=== PATIENT | female | born 1965 | race African-American/Black ===

== ENCOUNTER 2024-06-11 10:50 | Emergency (ER) | payer BC, OTHER ==
[~2024-06-11] VITALS: Ht 162.6 cm; Wt 63.0 kg
--- NOTE | 2024-06-11 11:18 | ED.PDOC ---
HPI (NEURO) HPI Comments 58 year old female brought in by EMS presents to the ED with a chief complaint of seizure onset today. Per EMS, patient was at [employer] when she experienced a witnessed seizure, lasted about 30 seconds. In route to ED, patient experienced a second seizure, tonic-clonic, lasted about 1 minute. Per EMS patient is ANO x1, postictal state. Patient states she is on Keppra for her seizure disorder. 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[employer] History Family History Family History: Unknown Social History Smoker: Non-Smoker Alcohol: Denies ETOH Use Drugs: Denies Drug Use Lives In: Home Constitutional: denies: chills, diaphoresis, fatigue, fever, malaise, sweats, weakness, others EENTM: denies: blurred vision, double vision, ear bleeding, ear discharge, ear drainage, ear pain, ear ringing, eye pain, eye redness, hearing loss, mouth pain, mouth swelling, nasal discharge, nose bleeding, nose congestion, nose pain, photophobia, tearing, throat pain, throat swelling, voice changes, others Respiratory: denies: cough, hemoptysis, orthopnea, SOB at rest, shortness of breath, SOB with excertion, stridor, wheezing, others Cardiovascular: denies: chest pain, dizzy spells, diaphoresis, Dyspnea on exertion, edema, irregular heart beat, left arm pain, lightheadedness, palpitations, PND, syncope, others Gastrointestinal: denies: abdomen distended, abdominal pain, blood streaked bowels, constipated, diarrhea, dysphagia, difficulty swallowing, hematemesis, melena, nausea, poor appetite, poor fluid intake, rectal bleeding, rectal pain, vomiting, others Genitourinary: denies: abnormal vagina bleeding, burning, dyspareunia, dysuria, flank pain, frequency, hematuria, incontinence, pain, , vagina discharge, urgency, others Neurological: reports: seizure; denies: dizziness, fainting, headache, left sided numbness, left sided weakness, numbness, paresthesia, pre-existing deficit, right sided numbness, right sided weakness, speech problems, tingling, tremors, weakness, others Musculoskeletal: denies: back pain, gout, joint pain, joint swelling, muscle pain, muscle stiffness, neck pain, others Integumetry: denies: bruises, change in color, change in hair/nails, dryness, laceration, lesions, lumps, rash, wounds, others Allergic/Immunocompromised: denies: Difficulty Healing, Frequent Infections, Hives, Itching, others Hematologic/Lymphatic: denies: anemia, blood clots, easy bleeding, easy bruising, swollen glands, others Endocrine: denies: excessive hunger, excessive sweating, excessive thirst, excessive urination, flushing, intolerance to cold, intolerance to heat, unexplained weight gain, unexplained weight loss, others Psychiatric: denies: anxiety, bipolar disorder, depression, hopeless, panic disorder, schizophrenia, sleepless, suicidal, others All Other Systems: Reviewed and Negative Physical Exam General Appearance: Moderate Distress HEENT: Normal ENT Inspection, Pharynx Normal, TMs Normal Neck: Full Range of Motion, Non-Tender, Normal, Normal Inspection Respiratory: Chest Non-Tender, Lungs Clear, No Accessory Muscle Use, No Respiratory Distress, Normal Breath Sounds Cardiovascular: No Edema, No JVD, No Murmur, No Gallop, Normal Peripheral Pulses, Regular Rate/Rhythm Breast Exam: Deferred Gastrointestinal: No Organomegaly, Non Tender, No Pulsatile Mass, Normal Bowel Sounds, Soft Genitalia: Deferred Pelvic: Deferred Rectal: Deferred Extremities: No pedal edema Musculoskeletal : Apperance: Normal Neurologic: Disoriented, No Motor Deficits, No Sensory Deficits Cerebellar Function: NOT DONE Reflexes: NOT DONE Skin: Normal Color Peripheral Pulses: 3+ Radial (R), 3+ Radial (L) Lymphatic: No Adenopathy Was a procedure done? Was a procedure done?: No Differential Diagnosis (SZ) Seizure: Psychogenic Seizure, Closed Head Injury, CVA/TIA X-Ray, Labs, Meds, VS Vital Signs Date Time Temp Pulse Resp B/P (MAP) Pulse Ox O2 Delivery O2 Flow Rate FiO2 06/11/24 11:12 97.9 72 20 119/81 (94) 100 Lab Test 06/11/24 12:55 Range/Units White Blood Count 7.4 4.4-10.8 10^3/uL Red Blood Count 4.70 4.0-5.20 10^6/uL Hemoglobin 14.6 12.2-16.2 g/dL Hematocrit 43.6 36.0-46.0 % Mean Corpuscular Volume 92.8 80.0-100.0 fL Mean Corpuscular Hemoglobin 31.1 28.0-32.0 pg Mean Corpuscular Hemoglobin Concent 33.5 32.0-36.0 g/dL Red Cell Distribution Width 13.2 11.8-14.3 % Platelet Count 267 140-450 10^3/uL Mean Platelet Volume 8.2 6.9-10.8 fL Neutrophils (%) (Auto) 64.9 37.0-80.0 % Lymphocytes (%) (Auto) 27.0 10.0-50.0 % Monocytes (%) (Auto) 7.2 0.0-12.0 % Eosinophils (%) (Auto) 0.2 0.0-7.0 % Basophils (%) (Auto) 0.7 0.0-2.0 % Neutrophils # (Auto) 4.8 1.6-8.6 10 ^3/uL Lymphocytes # (Auto) 2.0 0.4-5.4 10 ^3/uL Monocytes # (Auto) 0.5 0-1.3 10 ^3/uL Eosinophils # (Auto) 0 0-0.8 10 ^3/uL Basophils # (Auto) 0.1 0-0.2 10 ^3/uL Nucleated Red Blood Cells 0.1 % Sodium Level 143 136-145 mmol/L Potassium Level 3.9 3.5-5.1 mmol/L Chloride Level 111 H 98-107 mmol/L Carbon Dioxide Level 23 20-31 mmol/L Anion Gap 9 5-15 Blood Urea Nitrogen 12 9-23 mg/dL Creatinine 0.73 0.550-1.02 mg/dL Glomerular Filtration Rate Calc 95 >90 mL/min BUN/Creatinine Ratio 16.4 10.0-20.0 Serum Glucose 81 74-106 mg/dL Calcium Level 10.9 H 8.7-10.4 mg/dL Patient postictal. History of seizure. Had a seizure while at [employer]. Vitals stable. Moving her extremities pain Unable to get a good history from the patient. She did state that she is taking her medication. WBC within normal limits. Hemoglobin within normal limits. No sign of any trauma. CT of the head was deferred. Possibly will need MRI. Explained to the patient. Continue cardiac monitoring. Time of 1ST Reevaluation: 11:30 Reevaluation 1ST: Unchanged Patient Education/Counseling: Diagnosis, Treatment, Prognosis Family Education/Counseling: No Family Present Additional Information I reviewed the following notes from patient's past medical encounters: The following tests were ordered, and results were reviewed by me: CBC, UA, BMP Additional Information was gathered from interviewing the following independent historians: EMS I discussed treatment and results with medical personnel and patient Departure 1 Departure Time of Disposition: 15:06 Impression: Primary Impression: Metabolic encephalopathy Additional Impression: Seizure Disposition: ADMITTED INPATIENT Admit to: Med Surg Condition: Guarded Critical Care Note Critical Care Time?: Yes (90 min-critical care time only) Stability Stability form required: No Heart Score Heart Score: Heart Score Response (Comments) Value History Slightly Suspicious 0 EKG Normal 0 Age 45-64 1 Risk Factors 1 or 2 risk factors 1 Troponin Normal limit 0 Total 2 I personally scribed for CHANNING HILTON MD ([email or web address]) on 06/11/24 at 11:18. Electronically submitted by Lucero Amaro ([email or web address]). I personally scribed for CHANNING HILTON MD ([email or web address]) on 06/11/24 at 15:01. Electronically submitted by Lucero Amaro ([email or web address]). CHANNING HILTON MD Jun 11, 2024 11:18
[2024-06-11] MEDS: SODIUM CHLORIDE 0.9% 1,000 ML IV ONE (12:31)
[2024-06-11 13:08] LABS: Basophils # (auto) 0.1 10 ^3/uL (0-0.2); Basophils % (auto) 0.7 % (0.0-2.0); Eosinophils # (auto) 0 10 ^3/uL (0-0.8); Eosinophils % (auto) 0.2 % (0.0-7.0); Hematocrit 43.6 % (36.0-46.0); Hemoglobin 14.6 g/dL (12.2-16.2); Mean Corpuscular Hemoglobin 31.1 pg (28.0-32.0); Mean Corpuscular Hgb Conc. 33.5 g/dL (32.0-36.0); Mean Corpuscular Volume 92.8 fL (80.0-100.0); Monocytes # (auto) 0.5 10 ^3/uL (0-1.3); Monocytes % (auto) 7.2 % (0.0-12.0); Neutrophils # (auto) 4.8 10 ^3/uL (1.6-8.6); Neutrophils % (auto) 64.9 % (37.0-80.0); Nucleated Red Blood Cells % 0.1 %; Platelet Count (auto) 267 10^3/uL (140-450); Red Cell Distribution Width 13.2 % (11.8-14.3); White Blood Cell 7.4 10^3/uL (4.4-10.8)
[2024-06-11 13:18] LABS: Potassium 3.9 mmol/L (3.5-5.1); Sodium 143 mmol/L (136-145)
[2024-06-11 13:19] LABS: Anion Gap 9 (5-15); Calcium 10.9 mg/dL (8.7-10.4); Carbon Dioxide 23 mmol/L (20-31); Chloride 111 mmol/L (98-107)
[2024-06-11 13:24] LABS: BUN/Creatinine Ratio 16.4 (10.0-20.0); Blood Urea Nitrogen 12 mg/dL (9-23); Glucose 81 mg/dL (74-106)
--- NOTE | 2024-06-11 18:35 | DVH ---
Exam: CT HEAD WITHOUT CONTRAST History: seizure Technique: [address] images through the posterior fossa and the supratentorial compart ment were acquired without contrast and imaged using soft tissue and bone algorithms. RADIATION DOSE: DLP 1504.18 mGy.cm; CTDI vol 51.3 mGy. Comparison: None Findings: There is no evidence of an intracranial hemorrhage, acute large vessel infarct, mass effect, or midli ne shift. Left ICA aneurysm clip. Right posterior parietal shunt appears to terminate in the left frontoparieta l lobe and not within the lateral ventricle. The calvarium, orbits, paranasal sinuses, sella, middle ears, and mastoids are unremarkable. The superficial soft tissues are within normal limits. Impression: 1. No acute intracranial abnormality. 2. Right posterior parietal shunt appears to terminate in the left frontoparietal lobe and not within the lateral ventricle. Correlate for appropriate positioning.
[2024-06-11] MEDS ORDERED: ACETAMINOPHEN 325 MG TAB PO PRN (20:15)
[2024-06-11] MEDS ORDERED: ONDANSETRON HCL 4 MG/2 ML VIAL IV PRN (20:15)
--- NOTE | 2024-06-11 21:04 | DVH ---
EXAM: CT HEAD WITHOUT CONTRAST INDICATION: CHANGE IN MENTATION TECHNIQUE: CT of the head without intravenous contrast. Radiation Dose Information: CT Dose: CTDI volume is 56.77 mGy. Dose-length product is 1859.37 mGy*cm The dose indicators for CT are the volume Computed Tomography (CT) Dose Index (CTDIvol) and the Dose Length Product (DLP), and are measured in units of mGy and mGy-cm, respectively. These indicators are not patient dose, but values generated from the CT scanner acquisition factors. The report includes radiation exposure data for exposures received during this examination. COMPARISON: CT HEAD WITHOUT CONTRAST on DOS: 06/11/24 FINDINGS: There is no evidence of acute intracranial hemorrhage, extra-axial collection, mass effect, midline s hift, herniation or hydrocephalus. The ventricles, sulci and cisterns are age appropriate. Ventriculoperitoneal shunt tube in place with the end of the tube exiting the right posterior parietal occipital skull in the intracranial tube no jeri in the left parietal lobe. There is no intracranial hemorrhage. Embolic coils noted in the left P casandra sellar area. The pete-white differentiation is intact. Patchy periventricular and subcortical white matter hypoattenuation is nonspecific but may be related to small vessel ischemic disease. The visualized paranasal sinuses and mastoid air cells are clear. The surrounding soft tissues and osseous structures are unremarkable. IMPRESSION: 1. No prior studies for comparison. 2. Ventriculoperitoneal shunt tube traversing the lateral ventricles with the tip in the left temporo parietal lobe. 3. No acute intracranial hemorrhage. HS:Y
[2024-06-11] MEDS ORDERED: METOPROLOL TARTRATE 25 MG TAB PO SCH (22:00)
[2024-06-11] MEDS ORDERED: levETIRAcetam 500 MG TAB PO SCH (22:00)
[2024-06-12] MEDS: HYDROcodone-ACET 5/325MG TAB PO ONE (00:42)
[2024-06-12 05:59] VITALS: BP 133/55; PULSE 99; RESP 16; TEMP 98.4; O2SAT 99
[2024-06-12] MEDS ORDERED: ENOXAPARIN SOD 40 MG/0.4 ML SYRINGE SC SCH (10:00)
== END 2024-06-12 08:45 | disposition left against medical advice (07) ==
LOC: ER 10:50 → EDBD 10:50 → UNDOADMIN 20:02 → OVERFLOW 20:02 → UNDODISIN 06-12 08:45
DX: G93.41 Metabolic encephalopathy (principal); R56.9 Unspecified convulsions
CPT/HCPCS: 36415; 70450; 80048; 85025; 99291; 99292; G0378

== ENCOUNTER 2024-07-16 10:02 | Inpatient (IN) | payer BC ==
[~2024-07-16] VITALS: Ht 162.6 cm; Wt 77.1 kg
--- NOTE | 2024-07-16 10:25 | ED.PDOC ---
HPI (NEURO) HPI Comments 58 y.o female with medical history of seizures, presents to the ED via EMS s/p witnessed seizure at psychiatric today. EMS reports patient was assisted to the floor by witnesses at psychiatric reporting no head trauma. Patient arrives to the ED post- ictal stating she feeling like "she is in a horror house". No oral trauma or focal deficits noted. EMS denies any nausea or vomiting on scene or en route. 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 Family History Family History: Unknown Social History Smoker: Non-Smoker Alcohol: Denies ETOH Use Drugs: Denies Drug Use Lives In: Home Unable to Obtain due to: Altered Mental Status Physical Exam General Appearance: Other (post-ictal ) HEENT: Normal ENT Inspection, Pharynx Normal, TMs Normal Neck: Full Range of Motion, Non-Tender, Normal, Normal Inspection Respiratory: Chest Non-Tender, Lungs Clear, No Accessory Muscle Use, No Respiratory Distress, Normal Breath Sounds Cardiovascular: No Edema, No JVD, No Murmur, No Gallop, Normal Peripheral Pulses, Regular Rate/Rhythm Breast Exam: Deferred Gastrointestinal: No Organomegaly, Non Tender, No Pulsatile Mass, Normal Bowel Sounds, Soft Genitalia: Deferred Pelvic: Deferred Rectal: Deferred Extremities: No calf tenderness, Normal capillary refill, Normal inspection, Normal range of motion, Non-tender, No pedal edema Musculoskeletal : Apperance: Normal Neurologic: Other (patient is post-ictal, no obvious oral trauma or focal deficits ) Cerebellar Function: Normal Reflexes: Normal Skin: Dry, Normal Color, Warm Lymphatic: No Adenopathy EKG EKG : Pulse Rate (adult): 71 Cardiac Rhythm: NSR Was a procedure done? Was a procedure done?: No Differential Diagnosis (SZ) Seizure: Hyperventilation, Psychogenic Seizure, Alcohol Withdrawl, Anticonvulsant Withdrawl, Closed Head Injury, CVA/TIA, Drug Ingestion, Hypocalcemia, Hypoglycemia, Hyponatremia, Hypoxemia, Idiopathic, Mass Lesion, Meningitis, Syncope, Encephalopathy, Epilepsy-Break Through, Epilepsy-Status X-Ray, Labs, Meds, VS Vital Signs Date Time Temp Pulse Resp B/P (MAP) Pulse Ox O2 Delivery O2 Flow Rate FiO2 07/16/24 14:00 62 14 120/32 (61) 100 07/16/24 11:25 69 12 112/34 (60) 99 07/16/24 10:55 68 12 99 Room Air* 0 21 07/16/24 10:25 71 07/16/24 10:12 97.1 87 18 153/81 (105) 100 07/16/24 10:08 71 Lab Test 07/16/24 10:43 Range/Units White Blood Count 5.4 4.4-10.8 10^3/uL Red Blood Count 4.86 4.0-5.20 10^6/uL Hemoglobin 14.8 12.2-16.2 g/dL Hematocrit 44.0 36.0-46.0 % Mean Corpuscular Volume 90.5 80.0-100.0 fL Mean Corpuscular Hemoglobin 30.4 28.0-32.0 pg Mean Corpuscular Hemoglobin Concent 33.6 32.0-36.0 g/dL Red Cell Distribution Width 12.8 11.8-14.3 % Platelet Count 297 140-450 10^3/uL Mean Platelet Volume 8.2 6.9-10.8 fL Neutrophils (%) (Auto) 59.8 37.0-80.0 % Lymphocytes (%) (Auto) 28.5 10.0-50.0 % Monocytes (%) (Auto) 8.6 0.0-12.0 % Eosinophils (%) (Auto) 2.0 0.0-7.0 % Basophils (%) (Auto) 1.1 0.0-2.0 % Neutrophils # (Auto) 3.2 1.6-8.6 10 ^3/uL Lymphocytes # (Auto) 1.5 0.4-5.4 10 ^3/uL Monocytes # (Auto) 0.5 0-1.3 10 ^3/uL Eosinophils # (Auto) 0.1 0-0.8 10 ^3/uL Basophils # (Auto) 0.1 0-0.2 10 ^3/uL Nucleated Red Blood Cells 0.0 % Sodium Level 144 136-145 mmol/L Potassium Level 3.5 3.5-5.1 mmol/L Chloride Level 113 H 98-107 mmol/L Carbon Dioxide Level 22 20-31 mmol/L Anion Gap 9 5-15 Blood Urea Nitrogen 11 9-23 mg/dL Creatinine 0.78 0.550-1.02 mg/dL Glomerular Filtration Rate Calc 87 >90 mL/min BUN/Creatinine Ratio 14.1 10.0-20.0 Serum Glucose 83 74-106 mg/dL Calcium Level 11.0 H 8.7-10.4 mg/dL Levetiracetam Level Pending Plasma/Serum Blood Alcohol < 3.0 <10 mg/dL Current Medications Medications (Trade) Dose Ordered Sig/Rosa Isela Route Start Time Stop Time Status Last Admin Levetiracetam 100 ml @ 400 mls/hr ONCE ONCE IV 07/16/24 10:15 07/16/24 10:34 DC 07/16/24 11:44 Midazolam HCl (Versed Injection) 2 mg ONCE ONCE IM 07/16/24 11:15 07/16/24 11:16 DC 07/16/24 11:09 Time of 1ST Reevaluation: 10:21 Reevaluation 1ST: Unchanged Time of 2ND Reevaluation: 11:33 Reevaluation 2ND: Worsened (pt had another gen seizure here, witnessed by RN) Time of 3RD Reevaluation: 14:14 Reevaluation 3RD: Improved Patient Education/Counseling: Diagnosis, Treatment, Prognosis, Need For Follow Up, Other (Patient is post-ictal ) Family Education/Counseling: No Family Present Additional Information I reviewed the following notes from patient's past medical encounters: 06/11/24 for break through seizures: had two CT heads done then, were both negative. Noticeable [employer] shunt - The following tests were ordered, and results were reviewed by me: UA, Accucheck, Drug screen, CBC, BMP, - Additional information was gathered from interviewing the following independent Historian: EMS - I discussed treatments and results with medical personnel and: (consultants) pt is much improved, however is still very weak and slightly confused. she states that she lives alone. due to per persistent, although, improving postictal state, and without home support, she will be admitted until she is able to return to home alone with her improvement and lack of focal deficits, with the recent normal head ct, it is unlikely that she is encephalopathic, has a bleed, mass lesion EDT has been attempting to get the pt's group to call back for admission, but over 2 hours, we have not heard back. pt will be admitted to our hospitalist Departure 1 Departure Time of Disposition: 14:18 Impression: Primary Impression: Postictal confusion Additional Impression: Breakthrough seizure Disposition: ADMITTED INPATIENT Admit to: Tele Condition: Stable Critical Care Note Critical Care Time?: Yes (1 hr-critical care time only) Critical care comment: due to concerns for deterioration of patient's condition, the care required my highest level of attention and readiness. i assessed the patient's condition, revieweed relavent documents, communicated with medical personnel, ordered the proper tests and treatments, reassed fro results and response to treatments, spoke to family and consultants and formulated a plan of care Stability Stability form required: No I personally scribed for MILE CASTELLANO MD ([email or web address]) on 07/16/24 at 10:25. Electronically submitted by Cailin Santamaria ([facility]). MILE CASTELLANO MD Jul 16, 2024 10:25
[2024-07-16] MEDS: levETIRAcetam 500 mg/100ml 100 ML IV ONE (10:41)
[2024-07-16 10:55] VITALS: PULSE 68; RESP 12; O2SAT 99
[2024-07-16 10:58] LABS: Basophils # (auto) 0.1 10 ^3/uL (0-0.2); Basophils % (auto) 1.1 % (0.0-2.0); Eosinophils # (auto) 0.1 10 ^3/uL (0-0.8); Hemoglobin 14.8 g/dL (12.2-16.2); Lymphocytes # (auto) 1.5 10 ^3/uL (0.4-5.4); Lymphocytes % (auto) 28.5 % (10.0-50.0); Mean Corpuscular Hemoglobin 30.4 pg (28.0-32.0); Mean Corpuscular Hgb Conc. 33.6 g/dL (32.0-36.0); Mean Corpuscular Volume 90.5 fL (80.0-100.0); Monocytes # (auto) 0.5 10 ^3/uL (0-1.3); Monocytes % (auto) 8.6 % (0.0-12.0); Neutrophils # (auto) 3.2 10 ^3/uL (1.6-8.6); Neutrophils % (auto) 59.8 % (37.0-80.0); Platelet Count (auto) 297 10^3/uL (140-450); Red Blood Cells 4.86 10^6/uL (4.0-5.20); Red Cell Distribution Width 12.8 % (11.8-14.3); White Blood Cell 5.4 10^3/uL (4.4-10.8)
[2024-07-16] MEDS: MIDAZOLAM HCL 2MG/2ML 2ml VIAL (1mg/ml) IM ONE (11:09)
[2024-07-16 11:12] LABS: Potassium 3.5 mmol/L (3.5-5.1); Sodium 144 mmol/L (136-145)
[2024-07-16 11:13] LABS: Anion Gap 9 (5-15); Carbon Dioxide 22 mmol/L (20-31)
[2024-07-16 11:18] LABS: BUN/Creatinine Ratio 14.1 (10.0-20.0); Blood Urea Nitrogen 11 mg/dL (9-23); Glucose 83 mg/dL (74-106)
[2024-07-16 11:20] LABS: Blood Alcohol < 3.0 mg/dL (<10); Chloride 113 mmol/L (98-107)
--- NOTE | 2024-07-16 12:00 | ECG ---
[facility] Test Date: 2024-07-16 Test Time: 10:08:38 Pat Name: PAM HURLEY Department: er Room: Gender: F Hand Washer: lea : 1965 Requested By: EMERGENCY EMERGENCY Order Number: [id number] Reading MD: Aguila Robertson Measurements Intervals [place] Rate: 71 P: 70 ME: 129 QRS: 96 QRSD: 87 T: 50 QT: 428 QTc: 466 Interpretive Statements Sinus rhythm Anteroseptal infarct, age indeterminate Electronically Signed On 07-16-2024 14:51:51 PST by Aguila Robertson Please click the below link to view image of tracing.
[2024-07-16 18:30] LABS: Amphetamine Screen, Urine Neg (NEGATIVE); Barbiturate Scree,Urine Neg (NEGATIVE); Opiate Scree,Urine Neg (NEGATIVE); Phencyclidine Screen, Urine Neg (NEGATIVE)
[2024-07-16 18:31] LABS: Benzodiazephine Screen, Urine Pos (NEGATIVE); Cannabinoid Screen, Urine Neg (NEGATIVE); Cocaine Screen, Urine Neg (NEGATIVE)
[2024-07-16 19:30] VITALS: PULSE 68; RESP 12; O2SAT 99
--- NOTE | 2024-07-16 21:04 | PRN ---
Misceleneous Note Note Note 2030 returned call to ED. Per ZULEMA will call me back when they figure out who patient was signed out to. 2100 returned call to ED to follow up on patient status. ADAM PEREZ NP Jul 16, 2024 21:04
[2024-07-16] MEDS ORDERED: LORazepam 2MG/ML-1ML VIAL IV PRN (22:30)
[2024-07-16] MEDS ORDERED: ONDANSETRON HCL 4 MG/2 ML VIAL IV PRN (22:30)
[2024-07-16] MEDS ORDERED: NITROGLYCERIN 0.4 MG SL TAB SL PRN (22:30)
[2024-07-16] MEDS ORDERED: MORPHINE SULFATE INJ 2 MG/ml SYRG IV PRN (22:30)
[2024-07-17] VITALS (8 sets, daily range): BP systolic 116–135; BP diastolic 37–78; PULSE 64–95; RESP 16–18; TEMP 97.3–98.3; O2SAT 96–100
[2024-07-17] MEDS: SODIUM CHLORIDE 0.9% 500 ML IV SCH (01:08)
[2024-07-17] MEDS: levETIRAcetam 500 mg/100ml 100 ML IV SCH (01:08)
--- NOTE | 2024-07-17 01:19 | DVHHP2 ---
ADAM PEREZ SEWING INSPECTOR 07/17/24 0119: History of Present Illness Reason for Visit: seizure History of Present Illness Information in this HPI is limited due to the patient being a poor historian. 58 year-old female seizures, VIAL GAUGER shunt, CVA with right sided deficits, blurred vision, Brain aneurysm s/p left parasellar embolization coil Presents with complaints of a breakthrough seizure.Breakthrough seizure occurred while she was in [place]. No trauma reported. While in the emergency department patient had a additional seizure. At this time patient denies having followed up with neurology On outpatient basis. Patient states she lives alone And friends from [employer] come and check up on her. Patient denies fevers, chills, headaches, unilateral deficits, visual disturbance, shortness of breath, chest pain. DIVISION CHIEF: Seizure Smoke: No ALCOHOL: none Drugs: None Lives: Alone Review of Systems Constitutional: No: Fever, Chills, Sweats, Weakness, Malaise, Other Eyes: No: Pain, Vision change, Conjunctivae inflammation, Eyelid inflammation, Other, Redness ENT: No: Ear pain, Ear discharge, Nose pain, Nose discharge, Nose congestion, Mouth pain, Mouth swelling, Throat pain, Throat swelling, Other Respiratory: No: Cough, Dry, Shortness of breath, SOB with excertion, Wheezing, Hemoptysis, Pleuritic Pain, Sputum, Wheezing, Other Cardiovascular: No: Chest Pain, Palpitations, Orthopnea, Paroxysmal Noc. Dyspnea, Edema, Lt Headedness, Other Gastrointestinal: No: Nausea, Vomiting, Abdominal Pain, Diarrhea, Constipation, Melena, Hematochezia, Other Genitourinary: No Dysuria, No Frequency, No Incontinence, No Hematuria, No Retention, No Other Musculoskeletal: No: other, neck pain, shoulder pain, arm pain, back pain, hand pain, leg pain, foot pain Skin: No: Rash, Lesions, Jaundice, Bruising, Other Neurological: Seizures; No: Weakness, Numbness, Incoordination, Change in speech, Confusion, Other Allergies: Coded Allergies: Sulfa Antibiotics (Verified Allergy, Unknown, 07/17/24) Medications Current Medications Medications Dose Ordered Sig/Rosa Isela Route Start Time Stop Time Status Last Admin Dose Admin Sodium Chloride 500 ml @ 75 mls/hr Q6H40M IV 07/16/24 22:30 07/17/24 05:09 Docusate Sodium 100 mg BIDPRN PRN PO 2/9/25 22:30 Acetaminophen 650 mg Q6HP PRN PO 07/16/24 22:30 Ondansetron HCl 4 mg Q4HP PRN IV 07/16/24 22:30 Nitroglycerin 0.4 mg Q5MINP PRN SL 07/16/24 22:30 Morphine Sulfate 2 mg Q30M PRN IV 07/16/24 22:30 Levetiracetam 100 ml @ 400 mls/hr BID IV 07/17/24 00:11 Lorazepam 0.5 mg Q2HP PRN IV 07/16/24 22:30 Exam Vital Signs Vital Signs Date Time Temp Pulse Resp B/P (MAP) Pulse Ox O2 Delivery O2 Flow Rate FiO2 07/17/24 00:00 62 07/16/24 19:30 12 99 Room Air* 0 21 07/16/24 17:00 117/47 (70) 07/16/24 10:12 97.1 General Appearance: Alert, Cooperative, No acute distress HEENT: Atraumatic, PERRLA, EOMI Respiratory: Clear to auscultation, Normal air movement Cardiovascular: Regular rate, Normal S1, Normal S2 Abdominal: Normal bowel sounds, Soft, No tenderness Extremities: No cyanosis, No edema Skin: No rashes, No breakdown Neuro: Normal speech, Strength at 5/5 X4 ext Psych/Mental Status: Mood NL, Other (Forgetful, Easily distracted) Labs/Xrays Labs Test 07/16/24 23:06 07/16/24 18:04 07/16/24 10:43 Range/Units Urine Opiates Screen Neg NEGATIVE Urine Fentanyl Screen Neg NEGATIVE Urine Barbiturates Screen Neg NEGATIVE Urine Phencyclidine Screen Neg NEGATIVE Urine Amphetamines Screen Neg NEGATIVE Urine Benzodiazepines Screen Pos NEGATIVE Urine Cocaine Screen Neg NEGATIVE Urine Cannabinoids Screen Neg NEGATIVE White Blood Count 5.4 4.4-10.8 10^3/uL Red Blood Count 4.86 4.0-5.20 10^6/uL Hemoglobin 14.8 12.2-16.2 g/dL Hematocrit 44.0 36.0-46.0 % Mean Corpuscular Volume 90.5 80.0-100.0 fL Mean Corpuscular Hemoglobin 30.4 28.0-32.0 pg Mean Corpuscular Hemoglobin Concent 33.6 32.0-36.0 g/dL Red Cell Distribution Width 12.8 11.8-14.3 % Platelet Count 297 140-450 10^3/uL Mean Platelet Volume 8.2 6.9-10.8 fL Neutrophils (%) (Auto) 59.8 37.0-80.0 % Lymphocytes (%) (Auto) 28.5 10.0-50.0 % Monocytes (%) (Auto) 8.6 0.0-12.0 % Eosinophils (%) (Auto) 2.0 0.0-7.0 % Basophils (%) (Auto) 1.1 0.0-2.0 % Neutrophils # (Auto) 3.2 1.6-8.6 10 ^3/uL Lymphocytes # (Auto) 1.5 0.4-5.4 10 ^3/uL Monocytes # (Auto) 0.5 0-1.3 10 ^3/uL Eosinophils # (Auto) 0.1 0-0.8 10 ^3/uL Basophils # (Auto) 0.1 0-0.2 10 ^3/uL Nucleated Red Blood Cells 0.0 % Sodium Level 144 136-145 mmol/L Potassium Level 3.5 3.5-5.1 mmol/L Chloride Level 113 H 98-107 mmol/L Carbon Dioxide Level 22 20-31 mmol/L Anion Gap 9 5-15 Blood Urea Nitrogen 11 9-23 mg/dL Creatinine 0.78 0.550-1.02 mg/dL Glomerular Filtration Rate Calc 87 >90 mL/min BUN/Creatinine Ratio 14.1 10.0-20.0 Serum Glucose 83 74-106 mg/dL Calcium Level 11.0 H 8.7-10.4 mg/dL Plasma/Serum Blood Alcohol < 3.0 <10 mg/dL Assessment/Plan Assessment/Plan Breakthrough seizures Memory problems Hx CVA with right sided deficits Hx Ventricular Parietal Shunt HX Brain aneurysm s/p left parasellar embolization coil Plan Admit telemetry Neurology consult IVF IV Keppra BID Seizure precautions As needed Ativan for seizures Social service consult for home safety evaluation GI ppx pepcid / dvt ppx scd Plan discussed with: Patient My Orders Orders - ADAM PEREZ NP Procedure Category Date Status Time Admit ADMIT 07/16/24 Transmitted 22:18 Code Status CODE 07/16/24 Transmitted 22:18 Vital Signs NATHALIE 07/16/24 In Process 22:18 Review Orders With NATHALIE 07/16/24 In Process Adm. 22:18 Encourage Activity As NATHALIE 07/16/24 In Process Tolerate 22:18 Consistent DIET 07/17/24 Transmitted Carb(Ccho)Diabetes Breakfast Sodium Chloride 0.9% PHA 07/16/24 In Process 22:30 Docusate Sodium PHA 07/16/24 In Process Capsule (Colace 22:30 Acetaminophen Tablet PHA 07/16/24 In Process (Tylenol Tablet) 22:30 Notify Md Of Changes NATHALIE 07/16/24 In Process From Base 22:18 Advance Directive NATHALIE 07/16/24 In Process 22:18 Basic Metabolic Panel LAB 07/17/24 Logged 05:00 Basic Metabolic Panel LAB 07/18/24 Verified 05:00 Basic Metabolic Panel LAB 07/19/24 Verified 05:00 Complete Blood Count LAB 07/17/24 Logged 05:00 Complete Blood Count LAB 07/18/24 Verified 05:00 Complete Blood Count LAB 07/19/24 Verified 05:00 Patient Condition ORDERS 07/16/24 Transmitted 22:18 Allergies NATHALIE 07/16/24 In Process 22:18 Ondansetron Hcl PHA 07/16/24 In Process (Zofran) 22:30 Sequential NATHALIE 07/16/24 In Process Compression Device Nitroglycerin PHA 07/16/24 In Process Sublingual (Ntrostat 22:30 Morphine Sulfate PHA 07/16/24 In Process Injection 22:30 Stat Ekg For Chest NATHALIE 07/16/24 In Process Pain 22:18 Notify Of Changes NATHALIE 07/16/24 In Process From Base 22:18 Data Engineer For NATHALIE 07/16/24 In Process 24 Hours 22:18 Emergency Dysrhythmia NATHALIE 07/16/24 In Process Protocol 22:18 Rhythm Strips Once NATHALIE 07/16/24 In Process Every Shift 22:18 Oxygen By Nasal RT 07/16/24 Transmitted Cannula 22:18 Lorazepam 2mg/Ml Inj PHA 07/16/24 In Process (Ativan Inj) 22:30 * Neurology Consult CONS 07/16/24 Transmitted 22:18 Levetiracetam (Keppra) LAB 07/16/24 In Process 22:18 Levetiracetam 500 PHA 07/17/24 In Process Mg/100ml (Levetiraceta 00:11 Date of Service: Jul 17, 2024 Billing Provider: DULCE RAE MD Common Visit Codes: NOT BILLABLE DULCE RAE MD 07/18/24 1801: Review of Systems Allergies: Coded Allergies: Sulfa Antibiotics (Verified Allergy, Unknown, 07/17/24) Assessment/Plan Assessment/Plan Patient's chart is reviewed and discussed with the nurse practitioner. Patient is seen and evaluated by me in the afternoon. I agree with his evaluation, documentation, assessment and care plan as outlined. Plan discussed with: Patient PEREZADAM SEWING INSPECTOR Jul 17, 2024 01:19 DULCE RAE MD Jul 18, 2024 18:01
[2024-07-17] MEDS: ACETAMINOPHEN 325 MG TAB PO PRN (01:22)
[2024-07-17] MEDS ORDERED: MET25T PO (02:51)
[2024-07-17] MEDS ORDERED: VENL225T20 PO (02:51)
[2024-07-17] MEDS ORDERED: LEVE100020 (02:51)
[2024-07-17] MEDS ORDERED: ZONI100C43 PO (02:51)
[2024-07-17 06:47] LABS: Basophils # (auto) 0.1 10 ^3/uL (0-0.2); Basophils % (auto) 1.2 % (0.0-2.0); Eosinophils # (auto) 0.2 10 ^3/uL (0-0.8); Eosinophils % (auto) 5.1 % (0.0-7.0); Hematocrit 39.4 % (36.0-46.0); Hemoglobin 13.4 g/dL (12.2-16.2); Lymphocytes # (auto) 1.8 10 ^3/uL (0.4-5.4); Lymphocytes % (auto) 38.3 % (10.0-50.0); Mean Corpuscular Hemoglobin 30.7 pg (28.0-32.0); Mean Corpuscular Hgb Conc. 34.1 g/dL (32.0-36.0); Mean Corpuscular Volume 90.1 fL (80.0-100.0); Monocytes # (auto) 0.5 10 ^3/uL (0-1.3); Monocytes % (auto) 9.6 % (0.0-12.0); Neutrophils # (auto) 2.2 10 ^3/uL (1.6-8.6); Neutrophils % (auto) 45.8 % (37.0-80.0); Platelet Count (auto) 267 10^3/uL (140-450); Red Blood Cells 4.37 10^6/uL (4.0-5.20); Red Cell Distribution Width 12.7 % (11.8-14.3); White Blood Cell 4.8 10^3/uL (4.4-10.8)
[2024-07-17 06:55] LABS: Potassium 3.7 mmol/L (3.5-5.1); Sodium 142 mmol/L (136-145)
[2024-07-17 06:56] LABS: Anion Gap 8 (5-15); Carbon Dioxide 20 mmol/L (20-31)
[2024-07-17 07:02] LABS: BUN/Creatinine Ratio 13.5 (10.0-20.0); Blood Urea Nitrogen 10 mg/dL (9-23); Glucose 85 mg/dL (74-106)
[2024-07-17 07:03] LABS: Chloride 114 mmol/L (98-107)
[2024-07-17] MEDS: DOCUSATE SOD 100 MG CAP PO PRN (12:16)
[2024-07-17] MEDS ORDERED: LEVE100020 PO (14:57)
--- NOTE | 2024-07-17 15:02 | DVHDS2 ---
Discharge Summary Date of Admission Jul 16, 2024 at 22:18 Date of Discharge: Jul 17, 2024 Labs/Diagnostic Data: Laboratory Results Test 07/17/24 05:30 07/16/24 23:06 07/16/24 18:04 07/16/24 10:43 White Blood Count 4.8 10^3/uL (4.4-10.8) Red Blood Count 4.37 10^6/uL (4.0-5.20) Hemoglobin 13.4 g/dL (12.2-16.2) Hematocrit 39.4 % (36.0-46.0) Mean Corpuscular Volume 90.1 fL (80.0-100.0) Mean Corpuscular Hemoglobin 30.7 pg (28.0-32.0) Mean Corpuscular Hemoglobin Concent 34.1 g/dL (32.0-36.0) Red Cell Distribution Width 12.7 % (11.8-14.3) Platelet Count 267 10^3/uL (140-450) Mean Platelet Volume 8.3 fL (6.9-10.8) Neutrophils (%) (Auto) 45.8 % (37.0-80.0) Lymphocytes (%) (Auto) 38.3 % (10.0-50.0) Monocytes (%) (Auto) 9.6 % (0.0-12.0) Eosinophils (%) (Auto) 5.1 % (0.0-7.0) Basophils (%) (Auto) 1.2 % (0.0-2.0) Neutrophils # (Auto) 2.2 10 ^3/uL (1.6-8.6) Lymphocytes # (Auto) 1.8 10 ^3/uL (0.4-5.4) Monocytes # (Auto) 0.5 10 ^3/uL (0-1.3) Eosinophils # (Auto) 0.2 10 ^3/uL (0-0.8) Basophils # (Auto) 0.1 10 ^3/uL (0-0.2) Nucleated Red Blood Cells 0.0 % Sodium Level 142 mmol/L (136-145) Potassium Level 3.7 mmol/L (3.5-5.1) Chloride Level 114 mmol/L (98-107) Carbon Dioxide Level 20 mmol/L (20-31) Anion Gap 8 (5-15) Blood Urea Nitrogen 10 mg/dL (9-23) Creatinine 0.74 mg/dL (0.550-1.02) Glomerular Filtration Rate Calc 93 mL/min (>90) BUN/Creatinine Ratio 13.5 (10.0-20.0) Serum Glucose 85 mg/dL (74-106) Calcium Level 10.0 mg/dL (8.7-10.4) Urine Opiates Screen Neg (NEGATIVE) Urine Fentanyl Screen Neg (NEGATIVE) Urine Barbiturates Screen Neg (NEGATIVE) Urine Phencyclidine Screen Neg (NEGATIVE) Urine Amphetamines Screen Neg (NEGATIVE) Urine Benzodiazepines Screen Pos (NEGATIVE) Urine Cocaine Screen Neg (NEGATIVE) Urine Cannabinoids Screen Neg (NEGATIVE) Plasma/Serum Blood Alcohol < 3.0 mg/dL (<10) Other Laboratory Tests 07/17/24 05:30 Brief Hx & Hospital Course: Information in this HPI is limited due to the patient being a poor historian. 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 No trauma reported. While in the emergency department patient had a additional seizure. At this time patient denies having followed up with neurology On outpatient basis. Patient states she lives alone And friends from [employer] come and check up on her. Patient denies fevers, chills, headaches, unilateral deficits, visual disturbance, shortness of breath, chest pain. She is admitted and received Keppra IV while in the hospital. Patient remained seizure free in the hospital. Patient has a SYSTEMS SOFTWARE DEVELOPER shunt and she has a follow up with her Neurology at [place] in the next few weeks. Patient is advised to increase her Keppra to 1500 mg twice a day from 1000 given her intermittent seizures. Otherwise given she is clinically stable back to baseline normal status series felt she could be safely discharged home. Patient verbalized understanding over hospital diagnosis, treatment she received, discharge medications, discharge instructions and agree with follow-up plan of care as mentioned. Condition at Discharge: Stable Final Diagnosis/Problems List Breakthrough seizure, seizure disorder with a history of SYSTEMS SOFTWARE DEVELOPER shunt placed Discharge Disposition: Home Discharge Instruct/Medications Diet: Consistent carbohydrate, Cardiac 2g Na,low cholest Activity: No Restrictions, As Tolerated Activity comment: No driving Follow Up/Referral: Neurosurgery at [place] as your scheduled on of this month. Medications: Increase Keppra to 1500 mg twice a day Changed Medications: Levetiracetam (Levetiracetam) 1,000 Mg Tab 1.5 TAB PO BID, #90 TAB (Changed from: 1 ) To take 1500 mg twice a day Discharge Statement: "Patient was advised to return to the ER or call 911 if any headaches, dizziness, shortness of breath, chest pain, abdominal pain, bleeding, fevers, or worsening of medical condition. Patient was counseled about treatment plan, medications, possible side effects, patientverbalized understanding. All questions were answered to the best of my ability. This discharge took greater then 30 minutes in planning, reviewing documentation, counseling the patient, and discussing with other team members." ASSESSMENT ASSESSMENT Assessment Breakthrough seizure, seizure disorder with a history of SYSTEMS SOFTWARE DEVELOPER shunt placed DULCE RAE MD Jul 17, 2024 15:02
[2024-07-17] MEDS: levETIRAcetam 1000 mg/100ml 100 ML IV SCH (17:46)
== END 2024-07-17 18:30 | disposition home or self-care (01) | DRG 101 ==
LOC: EDBD 10:02 → ER 10:02 → TELE 22:18 → TELE-WESTW 07-17 01:48
PROVIDERS: ADMIT Nurse Practitioner Family; ATTEND Nurse Practitioner Family
PROC: 05HA33Z Insertion of Infusion Device into Left Brachial Vein, Percutaneous Approach (ICD-10-PCS; principal; 2024-07-16)
PROC: B54NZZA Ultrasonography of Left Upper Extremity Veins, Guidance (ICD-10-PCS; 2024-07-16)
DX: G40.409 Other generalized epilepsy and epileptic syndromes, not intractable, without status epilepticus (principal); Z86.73 Personal history of transient ischemic attack (TIA), and cerebral infarction without residual deficits; Z98.2 Presence of cerebrospinal fluid drainage device; Z79.899 Other long term (current) drug therapy
CPT/HCPCS: 36415; 80048; 80307; 80320; 82542; 85025; 93005; 99291; G0378; J2250

== ENCOUNTER 2024-08-09 11:27 | Inpatient (IN) | payer BC ==
[~2024-08-09] VITALS: Ht 167.6 cm; Wt 61.0 kg
[~2024-08-09 11:27] MED LIST: LEVE100020 PO; MET25T PO; VENL225T20 PO; ZONI100C43 PO
--- NOTE | 2024-08-09 11:54 | ED.PDOC ---
History of Present Illness HPI Comments 58F BIBA w/ prior Hx of Sz and CVA w/ right sided deficits which may be associated to the c/c of Sz. EMS report that the pt is A/Ox0 and that the pediatric care coordinator on scene stated that the pt did not take her medications today but the pt stated that she did. laboratory animal caretaker also notes that the Pt has been getting daily Sz since March of 2024. Pt6 is taking Keppra for the Sz medications. Due from pt being altered we are unable to get actual answers from the pt. Chief Complaint: Seizure Time Seen by MD: :25 Reviewed Notes: Nurses Notes, Implementation Services Analyst Notes, Medications, Allergies Allergies: Coded Allergies: Sulfa Antibiotics (Verified Allergy, Unknown, 07/17/24) Home Meds Active Scripts Levetiracetam (Levetiracetam) 1,000 Mg Tab, 1.5 TAB PO BID, #90 TAB To take 1500 mg twice a day Prov:DULCE RAE MD 07/17/24 Reported Medications Venlafaxine Hcl (Venlafaxine Hcl Er) 225 Mg Tab, 1 TAB PO 07/17/24 Metoprolol Tartrate (Lopressor) 25 Mg Tb, 1 TAB PO BID 07/17/24 Zonisamide (Zonisamide) 100 Mg Cap, 1 CAP PO DAILY 07/17/24 Information Source: Patient, Emergency Med Personnel Mode of Arrival: EMS Severity: Moderate Timing: Minutes Duration: Since onset, Minutes Prehospital treatment: None Past Medical History PAST MEDICAL HISTORY: CVA (right sided deficit), Seizures Surgical History: Denies all surgeries SEAFOOD AND SERVICE MEAT MANAGER History: No Pertinent SEAFOOD AND SERVICE MEAT MANAGER History Family History Family History: Reviewed,noncontributory to illness, Unknown Social History Smoker: Non-Smoker Alcohol: Denies ETOH Use Drugs: Denies Drug Use Lives In: Home Unable to Obtain due to: Altered Mental Status All Other Systems: Reviewed and Negative Physical Exam General Appearance: Moderate Distress, Normal HEENT: Normal ENT Inspection, Pharynx Normal, TMs Normal Neck: Full Range of Motion, Non-Tender, Normal, Normal Inspection Respiratory: Chest Non-Tender, Lungs Clear, No Accessory Muscle Use, No Respiratory Distress, Normal Breath Sounds Cardiovascular: No Edema, No JVD, No Murmur, No Gallop, Normal Peripheral Pulses, Regular Rate/Rhythm Breast Exam: Deferred Gastrointestinal: No Organomegaly, Non Tender, No Pulsatile Mass, Normal Bowel Sounds, Soft Genitalia: Deferred Pelvic: Deferred Rectal: Deferred Extremities: No calf tenderness, Normal capillary refill, Normal inspection, Normal range of motion, Non-tender, No pedal edema Musculoskeletal : Apperance: Normal Neurologic: Disoriented Cerebellar Function: NOT DONE Reflexes: NOT DONE Skin: Dry, Normal Color, Warm Lymphatic: No Adenopathy Was a procedure done? Was a procedure done?: No Differential Dx Considerations may include: Seizure Electrolyte imbalance X-Ray, Labs, Meds, VS Vital Signs Date Time Temp Pulse Resp B/P (MAP) Pulse Ox O2 Delivery O2 Flow Rate FiO2 08/09/24 16:54 83 Room Air* 0 21 08/09/24 11:41 98.2 81 18 138/78 (98) 96 08/09/24 11:36 74 Lab Test 08/09/24 13:17 Range/Units White Blood Count 4.8 4.4-10.8 10^3/uL Red Blood Count 4.65 4.0-5.20 10^6/uL Hemoglobin 14.3 12.2-16.2 g/dL Hematocrit 42.6 36.0-46.0 % Mean Corpuscular Volume 91.6 80.0-100.0 fL Mean Corpuscular Hemoglobin 30.9 28.0-32.0 pg Mean Corpuscular Hemoglobin Concent 33.7 32.0-36.0 g/dL Red Cell Distribution Width 13.1 11.8-14.3 % Platelet Count 241 140-450 10^3/uL Mean Platelet Volume 8.1 6.9-10.8 fL Neutrophils (%) (Auto) 55.8 37.0-80.0 % Lymphocytes (%) (Auto) 34.2 10.0-50.0 % Monocytes (%) (Auto) 8.2 0.0-12.0 % Eosinophils (%) (Auto) 1.0 0.0-7.0 % Basophils (%) (Auto) 0.8 0.0-2.0 % Neutrophils # (Auto) 2.7 1.6-8.6 10 ^3/uL Lymphocytes # (Auto) 1.6 0.4-5.4 10 ^3/uL Monocytes # (Auto) 0.4 0-1.3 10 ^3/uL Eosinophils # (Auto) 0 0-0.8 10 ^3/uL Basophils # (Auto) 0 0-0.2 10 ^3/uL Nucleated Red Blood Cells 0.1 % Sodium Level 146 H 136-145 mmol/L Potassium Level 3.5 3.5-5.1 mmol/L Chloride Level 114 H 98-107 mmol/L Carbon Dioxide Level 21 20-31 mmol/L Anion Gap 11 5-15 Blood Urea Nitrogen 11 9-23 mg/dL Creatinine 0.73 0.550-1.02 mg/dL Glomerular Filtration Rate Calc 95 >90 mL/min BUN/Creatinine Ratio 15.1 10.0-20.0 Serum Glucose 79 74-106 mg/dL Calcium Level 10.7 H 8.7-10.4 mg/dL Troponin I High Sensitivity 4 </=34 ng/L Current Medications Medications (Trade) Dose Ordered Sig/Rosa Isela Route Start Time Stop Time Status Last Admin Levetiracetam 100 ml @ 400 mls/hr ONCE ONCE IV 08/09/24 12:00 08/09/24 12:14 DC 08/09/24 12:19 Sodium Chloride 1,000 ml @ 1,000 mls/hr Q1H ONCE IV 08/09/24 12:15 08/09/24 13:14 DC 08/09/24 12:15 Sodium Chloride 1,000 ml @ 150 mls/hr Q6H40M ONCE IV 08/09/24 12:15 08/09/24 18:54 08/09/24 13:35 Lorazepam (Ativan Inj) 1 mg ONCE ONCE IV 08/09/24 12:30 08/09/24 12:31 DC 08/09/24 12:18 Patient altered. History of seizure. Was given Ativan. Vitals stable. EKG reviewed does not show any acute changes. Had a seizure in the ER. Was given Keppra. Reviewed her history pain Unable to get any history from the patient. No family members. Continue monitoring. Time of 1ST Reevaluation: 11:55 Reevaluation 1ST: Unchanged Patient Education/Counseling: Diagnosis, Treatment, Prognosis Family Education/Counseling: No Family Present Departure 1 Departure Time of Disposition: 12:21 Impression: Primary Impression: Metabolic encephalopathy Additional Impression: Seizure Disposition: ADMITTED INPATIENT Admit to: Med Surg Condition: Guarded Critical Care Note Critical Care Time?: No Stability Stability form required: No Heart Score Heart Score: Heart Score Response (Comments) Value History Slightly Suspicious 0 EKG Normal 0 Age 45-64 1 Risk Factors 1 or 2 risk factors 1 Troponin Normal limit 0 Total 2 I personally scribed for CHANNING HILTON MD ([email or web address]) on 08/09/24 at 11:54. Electronically submitted by Vasu Villatoro ([email or web address]). CHANNING HILTON MD Aug 09, 2024 11:54
[2024-08-09] MEDS: SODIUM CHLORIDE 0.9% 1,000 ML IV ONE ×2 (12:15→13:35)
[2024-08-09] MEDS: LORazepam 2MG/ML-1ML VIAL ONE (12:18)
[2024-08-09] MEDS: LORazepam 2MG/ML-1ML VIAL IV ONE (12:18)
[2024-08-09] MEDS: levETIRAcetam 1000 mg/100ml 100 ML IV ONE (12:19)
--- NOTE | 2024-08-09 12:43 | ECG ---
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
--- NOTE | 2024-08-09 13:13 | DVH ---
EXAM: CT HEAD WITHOUT CONTRAST INDICATION: seizure TECHNIQUE: CT of the head without intravenous contrast. Radiation Dose : 1. Head: CT Dose: CTDI volume is 55.5 mGy. Dose-length product is 982.72 mGy*cm The dose indicators for CT are the volume Computed Tomography (CT) Dose Index (CTDIvol) and the Dose Length Product (DLP), and are measured in units of mGy and mGy-cm, respectively. These indicators are not patient dose, but values generated from the CT scanner acquisition factors. The report includes radiation exposure data for exposures received during this examination. COMPARISON: CT HEAD WITHOUT CONTRAST on DOS: 06/11/24, CT HEAD WITHOUT CONTRAST on DOS: 06/11/24 FINDINGS: There is no evidence of acute intracranial hemorrhage, extra-axial collection, mass effect, midline s hift, herniation or hydrocephalus. Embolization coils in the left parasellar region. The ventricles, sulci and cisterns are age appropriate. The pete-white differentiation is intact. Patchy periventricular and subcortical white matter hypoattenuation is nonspecific but may be related to small vessel ischemic disease. The visualized paranasal sinuses and mastoid air cells are clear. Right parietal shawn hole with right posterior parietal approach SORTING AND FOLDING SUPERVISOR shunt catheter tubing extending to the left lateral ventricle/ left parietal lobe. IMPRESSION: No acute intracranial abnormality. No significant interval change since 06/11/2024. Radiation optimization: All CT scans at this facility use at least one of these dose optimization tabatha hniques: automated exposure control mA and/or kV adjustment per patient size (includes targeted exam s where dose is matched to clinical indication) or iterative reconstruction.
--- NOTE | 2024-08-09 13:15 | DVH ---
CHEST RADIOGRAPH Indication: sob Technique: Single frontal view of the chest was obtained Comparison: None FINDINGS: Lines and Tubes: None Lungs: No focal consolidation. Pleura: No effusion. Hyperinflation of the lungs. No pneumothorax. Cardiomediastinal contours: Unremarkable Bones: No acute osseous abnormality. Partially imaged rights shunt extending through the right neck, midline mediastinum into the upper ab domen. IMPRESSION: No acute cardiopulmonary disease. Hyperinflation of the lungs.
[2024-08-09 13:28] LABS: Basophils # (auto) 0 10 ^3/uL (0-0.2); Basophils % (auto) 0.8 % (0.0-2.0); Eosinophils # (auto) 0 10 ^3/uL (0-0.8); Hematocrit 42.6 % (36.0-46.0); Hemoglobin 14.3 g/dL (12.2-16.2); Lymphocytes # (auto) 1.6 10 ^3/uL (0.4-5.4); Lymphocytes % (auto) 34.2 % (10.0-50.0); Mean Corpuscular Hemoglobin 30.9 pg (28.0-32.0); Mean Corpuscular Hgb Conc. 33.7 g/dL (32.0-36.0); Mean Corpuscular Volume 91.6 fL (80.0-100.0); Monocytes # (auto) 0.4 10 ^3/uL (0-1.3); Monocytes % (auto) 8.2 % (0.0-12.0); Neutrophils # (auto) 2.7 10 ^3/uL (1.6-8.6); Neutrophils % (auto) 55.8 % (37.0-80.0); Nucleated Red Blood Cells % 0.1 %; Platelet Count (auto) 241 10^3/uL (140-450); Red Blood Cells 4.65 10^6/uL (4.0-5.20); Red Cell Distribution Width 13.1 % (11.8-14.3); White Blood Cell 4.8 10^3/uL (4.4-10.8)
[2024-08-09 13:38] LABS: Potassium 3.5 mmol/L (3.5-5.1)
[2024-08-09 13:39] LABS: Anion Gap 11 (5-15); Carbon Dioxide 21 mmol/L (20-31)
[2024-08-09 13:41] LABS: Calcium 10.7 mg/dL (8.7-10.4); Chloride 114 mmol/L (98-107); Sodium 146 mmol/L (136-145)
[2024-08-09 13:45] LABS: BUN/Creatinine Ratio 15.1 (10.0-20.0); Blood Urea Nitrogen 11 mg/dL (9-23); Glucose 79 mg/dL (74-106)
[2024-08-09 16:54] VITALS: PULSE 83
[2024-08-09] MEDS ORDERED: ONDANSETRON HCL 4 MG/2 ML VIAL IV PRN (18:30)
[2024-08-09] MEDS ORDERED: MORPHINE SULFATE INJ 2 MG/ml SYRG IV PRN (18:30)
[2024-08-09] MEDS ORDERED: NITROGLYCERIN 0.4 MG SL TAB SL PRN (18:30)
[2024-08-09 20:04] VITALS: PULSE 73; RESP 14; O2SAT 98
[2024-08-09] MEDS: LORazepam 2MG/ML-1ML VIAL IV PRN (21:49)
[2024-08-09] MEDS: levETIRAcetam 1000 mg/100ml 100 ML IV SCH (21:49)
[2024-08-09] MEDS: METOPROLOL TARTRATE 25 MG TAB PO SCH (22:00)
[2024-08-09 22:22] LABS: Urine Bacteria FEW /hpf (None Seen); Urine Blood Negative /uL (Negative); Urine Clarity Clear (Clear); Urine Color Colorless (Yellow); Urine Protein, UAD Negative (Negative); Urine Specific Gravity 1.008 (1.001-1.035); Urine Squamous Epithelial Cell FEW /hpf (<5); Urine Urobilinogen Normal (Negative); Urine WBC 2 /HPF (0-5); Urine pH 6.5 (5.0-9.0)
[2024-08-09 22:40] LABS: Amphetamine Screen, Urine Neg (NEGATIVE); Barbiturate Scree,Urine Neg (NEGATIVE); Benzodiazephine Screen, Urine Neg (NEGATIVE); Cannabinoid Screen, Urine Neg (NEGATIVE); Cocaine Screen, Urine Neg (NEGATIVE); Opiate Scree,Urine Neg (NEGATIVE); Phencyclidine Screen, Urine Neg (NEGATIVE)
[2024-08-09 23:42] VITALS: BP 102/50; PULSE 62; RESP 18; TEMP 98.6; O2SAT 94
[2024-08-10] VITALS (9 sets, daily range): BP systolic 102–134; BP diastolic 42–71; PULSE 62–80; RESP 16–18; TEMP 97.5–98.6; O2SAT 94–100
[2024-08-10 00:17] LABS: Rapid Influenza A Negative (Negative); Rapid Influenza B Negative (Negative)
[2024-08-10] MEDS ORDERED: LORA-1121 PO (06:12)
[2024-08-10] MEDS ORDERED: HYDR-4902 PO (06:20)
[2024-08-10] MEDS ORDERED: LEVE500T40 PO (06:28)
[2024-08-10] MEDS ORDERED: POM PO (06:32)
--- NOTE | 2024-08-10 09:38 | DVHINCON2 ---
Neuro Consultation Date of Consultation Date: 08/10/24 History of Present Illness History of Present Illness: Natalee Cid is a 58 year old female who presents with seizures. Information obtained by caregiver. She was unaware she saw Neurology in 06/2024. Caregiver notes that there has been a change in caregivers. She now has a 24/7 caregiver and they are trying to get POA currently to help management her medical issues. They are not sure of her medications and if she is taking it consistently. Per med rec, she was taking Keppra 500mg BID but outpt notes sent 1000mg BID Patient last seen by Dr. Haritha Franco on 06/14/2024 who felt her seizures may be due to shunt malfunction. 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 Family History Patient History: Patient reports no known family medical history. Allergies and Medications Allergies: Coded Allergies: Sulfa Antibiotics (Verified Allergy, Unknown, 07/17/24) Home Meds: Reported Medications Levetiracetam (Keppra) 1,000 Mg Tab, 1 TAB PO BID, #60 TAB 5 Refills 08/10/24 Patients Own Medication (PATIENTS OWN MEDICATION) ., 15 MG PO DAILY PTS OWN MED-OBTAIN FROM PT AND SEND TO RX DRUG: Oxybutynin ER FREQ: Daily RX# EXP: DATE DISP: TECH: RPH: 08/10/24 Hydrocodone-Acetaminophen (Hydrocodone Bitartrate/AC 5-325 mg) 1 Tab Tab, 1 TAB PO DAILY for pain, TAB 08/10/24 Lorazepam (ATIVAN TABLET) 0.5 Mg Tb, 1 TAB PO BID for anxiety/depression, #60 TAB 08/10/24 Venlafaxine Hcl (Venlafaxine Hcl Er) 225 Mg Tab, 1 TAB PO 07/17/24 Metoprolol Tartrate (Lopressor) 25 Mg Tb, 1 TAB PO BID 07/17/24 Zonisamide (Zonisamide) 100 Mg Cap, 1 CAP PO DAILY 07/17/24 Current Medications: Current Medications Medications (Trade) Dose Ordered Sig/Rosa Isela Route PRN Reason Start Time Stop Time Status Last Admin Metoprolol Tartrate (Lopressor Tablet) 12.5 mg BID PO 08/10/24 22:00 08/10/24 21:37 Patient Own Medication 1 cap DAILY PO 08/11/24 10:00 Oxybutynin Chloride (Ditropan Tablet) 5 mg Q8HR PO 08/10/24 22:00 08/11/24 05:53 General Examination Last Vital sign Vital Signs Date Time Temp Pulse Resp B/P (MAP) Pulse Ox O2 Delivery O2 Flow Rate FiO2 08/11/24 01:00 98.4 72 19 110/46 (67) 96 98.4 08/10/24 20:00 Room Air* 0 21 General Exam: General Examination: General: No apparent distress, appears comfortable. Cooperative HEENT: Normocephalic, atraumatic. Supple neck. No oropharynx lesion or exudate noted. Extremities: No noted edema or cyanosis Skin: No noted rashes or jaundice. Neuro Exam: Mental Status: Alert and orientated to person. Mild dysarthria Cranial Nerves: Extraocular muscles are intact. No ptosis on primary gaze or fatigable ptosis noted. Intact sensation to light touch on face through V1-V3. No facial asymmetry noted. Tongue is midline with symmetrical palate elevation. Shoulder shrug is symmetrical. Motor: Bulk is normal. No abnormal movements were noted. B/L UE and LE antigravity strength Sensory: Intact to light touch Reflexes (R/L) +2 throughout, downgoing toes b/l Coordination: No dysmetria on finger nose finger, heel knee jerry. No ataxia noted Gait: Slow, steady with walker Labs: Laboratory Tests Test 08/09/24 13:17 08/09/24 22:00 08/09/24 23:49 08/10/24 07:32 Range/Units White Blood Count 4.8 4.4-10.8 10^3/uL Red Blood Count 4.65 4.0-5.20 10^6/uL Hemoglobin 14.3 12.2-16.2 g/dL Hematocrit 42.6 36.0-46.0 % Mean Corpuscular Volume 91.6 80.0-100.0 fL Mean Corpuscular Hemoglobin 30.9 28.0-32.0 pg Mean Corpuscular Hemoglobin Concent 33.7 32.0-36.0 g/dL Red Cell Distribution Width 13.1 11.8-14.3 % Platelet Count 241 140-450 10^3/uL Mean Platelet Volume 8.1 6.9-10.8 fL Neutrophils (%) (Auto) 55.8 37.0-80.0 % Lymphocytes (%) (Auto) 34.2 10.0-50.0 % Monocytes (%) (Auto) 8.2 0.0-12.0 % Eosinophils (%) (Auto) 1.0 0.0-7.0 % Basophils (%) (Auto) 0.8 0.0-2.0 % Neutrophils # (Auto) 2.7 1.6-8.6 10 ^3/uL Lymphocytes # (Auto) 1.6 0.4-5.4 10 ^3/uL Monocytes # (Auto) 0.4 0-1.3 10 ^3/uL Eosinophils # (Auto) 0 0-0.8 10 ^3/uL Basophils # (Auto) 0 0-0.2 10 ^3/uL Nucleated Red Blood Cells 0.1 % Sodium Level 146 H 136-145 mmol/L Potassium Level 3.5 3.5-5.1 mmol/L Chloride Level 114 H 98-107 mmol/L Carbon Dioxide Level 21 20-31 mmol/L Anion Gap 11 5-15 Blood Urea Nitrogen 11 9-23 mg/dL Creatinine 0.73 0.550-1.02 mg/dL Glomerular Filtration Rate Calc 95 >90 mL/min BUN/Creatinine Ratio 15.1 10.0-20.0 Serum Glucose 79 74-106 mg/dL Calcium Level 10.7 H 8.7-10.4 mg/dL Troponin I High Sensitivity 4 </=34 ng/L Urine Color Colorless Yellow Urine Clarity Clear Clear Urine pH 6.5 5.0-9.0 Urine Specific [place] 1.008 1.001-1.035 Urine Protein Negative Negative Urine Ketones Negative Negative Urine Blood Negative Negative /uL Urine Nitrite Negative Negative Urine Bilirubin Negative Negative Urine Urobilinogen Normal Negative mg/dL Urine Leukocyte Esterase 1+ Negative /uL Urine RBC <1 0 - 4 /hpf Urine Microscopic WBC 2 0-5 /HPF Urine Squamous Epithelial Cells Few <5 /hpf Urine Bacteria Few H None Seen /hpf Urine Glucose Normal Normal mg/dL Urine Opiates Screen Neg NEGATIVE Urine Fentanyl Screen Neg NEGATIVE Urine Barbiturates Screen Neg NEGATIVE Urine Phencyclidine Screen Neg NEGATIVE Urine Amphetamines Screen Neg NEGATIVE Urine Benzodiazepines Screen Neg NEGATIVE Urine Cocaine Screen Neg NEGATIVE Urine Cannabinoids Screen Neg NEGATIVE Influenza Type A Antigen Negative Negative Influenza Type B Antigen Negative Negative POC Glucose 86 70-106 mg/dl Assessment/Plan 1. 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 Pt is uspposed to be on Keppra 1000mg BID. 08/2024 CT head wo contrast - no acute process, no change compared to 06/2024. 08/10/24 Shunt series (Xray skull, chest, abdomen) show REWEAVER shunt is intact. Patient had outpt neurosurgery appt in 07/2024 but apparently was unaware/noncompliant. Her seizures do not seem to be due to REWEAVER shunt malfunction given no hydrocephalus, normal shunt series. Likely due to medical noncompliance - Increase Keppra 1500mg BID - Encouraged caregiver to manage daily medications - Outpt neurosurgery eval Will f/u as outpt Plan discussed with: Patient, Other (caregiver) FUENTES BLAND MD Aug 10, 2024 09:38
--- NOTE | 2024-08-10 11:56 | DVH ---
CHEST RADIOGRAPH Indication: History of MEDICAL I D SALES shunt, check MEDICAL I D SALES shunt integrity Technique: Single frontal view of the chest was obtained Comparison: XY CHEST PORTABLE on DOS: 08/09/24 FINDINGS: Lines and Tubes: Left MEDICAL I D SALES shunt catheter. Lungs: No focal consolidation. Pleura: No effusion. No pneumothorax. Cardiomediastinal contours: Unremarkable Bones: No acute osseous abnormality. IMPRESSION: No acute cardiopulmonary disease.
--- NOTE | 2024-08-10 12:05 | DVH ---
Skull series Clinical History: History of GLASSWARE MAKER shunt, check GLASSWARE MAKER shunt integrity Technique: 4 views of the skull. 2 views of the abdomen. Comparison: None Findings: No fractures or dislocations. No osteolytic or osteoblastic lesions. GLASSWARE MAKER shunt is present. Coils are seen overlying the left DULCE MARIA territory. GLASSWARE MAKER shunt overlying the abdomen coiling in the pelvis. Impression: Normal skull series. GLASSWARE MAKER shunt appears intact.
--- NOTE | 2024-08-10 12:05 | DVH ---
Skull series Clinical History: History of PERIOPERATIVE ASSISTANT shunt, check PERIOPERATIVE ASSISTANT shunt integrity Technique: 4 views of the skull. 2 views of the abdomen. Comparison: None Findings: No fractures or dislocations. No osteolytic or osteoblastic lesions. PERIOPERATIVE ASSISTANT shunt is present. Coils are seen overlying the left DULCE MARIA territory. PERIOPERATIVE ASSISTANT shunt overlying the abdomen coiling in the pelvis. Impression: Normal skull series. PERIOPERATIVE ASSISTANT shunt appears intact.
[2024-08-10] MEDS ORDERED: LEVE100012 PO (14:32)
--- NOTE | 2024-08-10 14:48 | DVHHP2 ---
History of Present Illness Reason for Visit: Breakthrough seizures History of Present Illness 58F BIBA w/ prior Hx of Sz and CVA w/ right sided deficits which may be associated to the c/c of Sz. EMS report that the pt is A/Ox0 and that the transitional care nurse on scene stated that the pt did not take her medications today but the pt stated that she did. general office clerk also notes that the Pt has been getting daily Sz since March of 2024. Pt6 is taking Keppra for the Sz medications. Due from pt being altered we are unable to get actual answers from the pt. In the ER patient noted to have couple of seizures. She was postictal. Therefore she has been admitted to the hospital for further evaluation and management. 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 Allergies: Coded Allergies: Sulfa Antibiotics (Verified Allergy, Unknown, 07/17/24) Medications Current Medications Medications Dose Ordered Sig/Rosa Isela Route Start Time Stop Time Status Last Admin Dose Admin Nitroglycerin 0.4 mg Q5MINP PRN SL 08/09/24 18:30 Morphine Sulfate 2 mg Q30M PRN IV 08/09/24 18:30 Levetiracetam 100 ml @ 400 mls/hr BID IV 08/09/24 22:00 08/10/24 10:27 400 MLS/HR Ondansetron HCl 4 mg Q4HPRN PRN IV 08/09/24 18:30 Lorazepam 1 mg Q5MINP PRN IV 08/09/24 18:30 08/10/24 10:20 1 MG Acetaminophen 650 mg Q6HP PRN PO 08/09/24 18:30 Metoprolol Tartrate 12.5 mg BID PO 08/10/24 22:00 Exam Vital Signs Vital Signs Date Time Temp Pulse Resp B/P (MAP) Pulse Ox O2 Delivery O2 Flow Rate FiO2 08/10/24 10:00 76 119/57 08/10/24 09:00 97.8 16 100 97.8 08/10/24 08:00 Room Air* 0 21 Exam Patient appears postictal. Opens her eyes when calling name. Unable to communicate. HEENT neck supple no JVD pupils equal round react to light. Oropharynx is clear without any lesions or exudates. Heart regular rate and rhythm S1 plus S2. Lungs fair air movement without rales wheezes. Abdomen soft nontender positive bowel sounds. Extremities no edema positive pulses. Neurologically no gross focal neurological deficits identified. Labs/Xrays Labs Test 08/10/24 07:32 08/09/24 23:49 08/09/24 22:00 08/09/24 13:17 Range/Units POC Glucose 86 70-106 mg/dl Influenza Type A Antigen Negative Negative Influenza Type B Antigen Negative Negative Urine Color Colorless Yellow Urine Clarity Clear Clear Urine pH 6.5 5.0-9.0 Urine Specific [place] 1.008 1.001-1.035 Urine Protein Negative Negative Urine Ketones Negative Negative Urine Blood Negative Negative /uL Urine Nitrite Negative Negative Urine Bilirubin Negative Negative Urine Urobilinogen Normal Negative mg/dL Urine Leukocyte Esterase 1+ Negative /uL Urine RBC <1 0 - 4 /hpf Urine Microscopic WBC 2 0-5 /HPF Urine Squamous Epithelial Cells Few <5 /hpf Urine Bacteria Few H None Seen /hpf Urine Glucose Normal Normal mg/dL Urine Opiates Screen Neg NEGATIVE Urine Fentanyl Screen Neg NEGATIVE Urine Barbiturates Screen Neg NEGATIVE Urine Phencyclidine Screen Neg NEGATIVE Urine Amphetamines Screen Neg NEGATIVE Urine Benzodiazepines Screen Neg NEGATIVE Urine Cocaine Screen Neg NEGATIVE Urine Cannabinoids Screen Neg NEGATIVE White Blood Count 4.8 4.4-10.8 10^3/uL Red Blood Count 4.65 4.0-5.20 10^6/uL Hemoglobin 14.3 12.2-16.2 g/dL Hematocrit 42.6 36.0-46.0 % Mean Corpuscular Volume 91.6 80.0-100.0 fL Mean Corpuscular Hemoglobin 30.9 28.0-32.0 pg Mean Corpuscular Hemoglobin Concent 33.7 32.0-36.0 g/dL Red Cell Distribution Width 13.1 11.8-14.3 % Platelet Count 241 140-450 10^3/uL Mean Platelet Volume 8.1 6.9-10.8 fL Neutrophils (%) (Auto) 55.8 37.0-80.0 % Lymphocytes (%) (Auto) 34.2 10.0-50.0 % Monocytes (%) (Auto) 8.2 0.0-12.0 % Eosinophils (%) (Auto) 1.0 0.0-7.0 % Basophils (%) (Auto) 0.8 0.0-2.0 % Neutrophils # (Auto) 2.7 1.6-8.6 10 ^3/uL Lymphocytes # (Auto) 1.6 0.4-5.4 10 ^3/uL Monocytes # (Auto) 0.4 0-1.3 10 ^3/uL Eosinophils # (Auto) 0 0-0.8 10 ^3/uL Basophils # (Auto) 0 0-0.2 10 ^3/uL Nucleated Red Blood Cells 0.1 % Sodium Level 146 H 136-145 mmol/L Potassium Level 3.5 3.5-5.1 mmol/L Chloride Level 114 H 98-107 mmol/L Carbon Dioxide Level 21 20-31 mmol/L Anion Gap 11 5-15 Blood Urea Nitrogen 11 9-23 mg/dL Creatinine 0.73 0.550-1.02 mg/dL Glomerular Filtration Rate Calc 95 >90 mL/min BUN/Creatinine Ratio 15.1 10.0-20.0 Serum Glucose 79 74-106 mg/dL Calcium Level 10.7 H 8.7-10.4 mg/dL Troponin I High Sensitivity 4 </=34 ng/L Assessment/Plan Assessment/Plan Admit her to hospital. We will have a neurological consultation. Patient is loaded with IV Keppra therefore we will continue IV Keppra in the hospital. Seizure precautions. Clear liquid diet. Supportive care and treatment. Further clinical management per clinical course and recommendations from the neurologist. Plan discussed with: Other (ER physician) My Orders Orders - DULCE RAE MD Procedure Category Date Status Time Admit ADMIT 08/09/24 Transmitted 18:18 * Neurology Consult CONS 08/09/24 Transmitted 18:18 Seizure Precautions NATHALIE 08/09/[address] 18:18 Seizure Precautions ED NURSING 08/09/24 Transmitted Nitroglycerin PHA 08/09/24 In Process Sublingual (Ntrostat 18:30 Morphine Sulfate PHA 08/09/24 In Process Injection 18:30 Stat Ekg For Chest NATHALIE 08/09/24 In Process Pain 18:18 Notify Of Changes NATHALIE 08/09/24 In Process From Base 18:18 Integrated Circuit Ic Layout Designer For NATHALIE 08/09/24 In Process 24 Hours 18:18 Emergency Dysrhythmia NATHALIE 08/09/24 In Process Protocol 18:18 Rhythm Strips Once NATHALIE 08/09/24 In Process Every Shift 18:18 Oxygen By Nasal RT 08/09/24 Transmitted Cannula 18:18 Levetiracetam 1000 PHA 08/09/24 In Process Mg/100ml (Levetiracet 22:00 Ondansetron Hcl PHA 08/09/24 In Process (Zofran) 18:30 Lorazepam 2mg/Ml Inj PHA 08/09/24 In Process (Ativan Inj) 18:30 Acetaminophen Tablet PHA 08/09/24 In Process (Tylenol Tablet) 18:30 Pt Request For Service PT 08/09/24 Logged 18:21 * Coal And Ash Supervisor CONS 08/10/24 Transmitted Consult Metoprolol Tartrate PHA 08/10/24 In Process Tablet (Lopressor Ta 22:00 Regular Diet DIET 08/10/24 Transmitted Dinner Pt Request For Service PT 08/10/24 Logged 14:32 Problem List: (1) Breakthrough seizure (2) Postictal confusion (3) Seizure DULCE RAE MD Aug 10, 2024 14:48
[2024-08-10] MEDS: METOPROLOL TARTRATE 25 MG TAB PO SCH (21:37)
[2024-08-10] MEDS: OXYBUTYNIN CHL 5 MG TAB PO SCH (21:37)
[2024-08-10] MEDS: ACETAMINOPHEN 325 MG TAB PO PRN (23:25)
[2024-08-11 01:00] VITALS: BP 110/46; PULSE 72; RESP 19; TEMP 98.4; O2SAT 96
[2024-08-11 08:00] VITALS: PULSE 65; PULSE 72; RESP 17; O2SAT 98
[2024-08-11 09:00] VITALS: BP 119/69; PULSE 79; RESP 18; TEMP 98.2; O2SAT 98
[2024-08-11] MEDS: levETIRAcetam 1500 mg/100ml 100 ML IV SCH (10:00)
[2024-08-11] MEDS: Zonisamide 100 MG CAPSULES PO SCH (10:00)
[2024-08-11] MEDS: levETIRAcetam 500 MG TAB PO ONE (12:45)
--- NOTE | 2024-08-11 13:48 | DVHDS2 ---
Discharge Summary Date of Admission Aug 09, 2024 at 18:18 Date of Discharge: Aug 11, 2024 Labs/Diagnostic Data: Laboratory Results Test 08/10/24 07:32 08/09/24 23:49 08/09/24 22:00 08/09/24 13:17 POC Glucose 86 mg/dl (70-106) Influenza Type A Antigen Negative (Negative) Influenza Type B Antigen Negative (Negative) Urine Color Colorless (Yellow) Urine Clarity Clear (Clear) Urine pH 6.5 (5.0-9.0) Urine Specific [place] 1.008 (1.001-1.035) Urine Protein Negative (Negative) Urine Ketones Negative (Negative) Urine Blood Negative /uL (Negative) Urine Nitrite Negative (Negative) Urine Bilirubin Negative (Negative) Urine Urobilinogen Normal mg/dL (Negative) Urine Leukocyte Esterase 1+ /uL (Negative) Urine RBC <1 /hpf (0 - 4) Urine Microscopic WBC 2 /HPF (0-5) Urine Squamous Epithelial Cells Few /hpf (<5) Urine Bacteria Few /hpf (None Seen) Urine Glucose Normal mg/dL (Normal) Urine Opiates Screen Neg (NEGATIVE) Urine Fentanyl Screen Neg (NEGATIVE) Urine Barbiturates Screen Neg (NEGATIVE) Urine Phencyclidine Screen Neg (NEGATIVE) Urine Amphetamines Screen Neg (NEGATIVE) Urine Benzodiazepines Screen Neg (NEGATIVE) Urine Cocaine Screen Neg (NEGATIVE) Urine Cannabinoids Screen Neg (NEGATIVE) White Blood Count 4.8 10^3/uL (4.4-10.8) Red Blood Count 4.65 10^6/uL (4.0-5.20) Hemoglobin 14.3 g/dL (12.2-16.2) Hematocrit 42.6 % (36.0-46.0) Mean Corpuscular Volume 91.6 fL (80.0-100.0) Mean Corpuscular Hemoglobin 30.9 pg (28.0-32.0) Mean Corpuscular Hemoglobin Concent 33.7 g/dL (32.0-36.0) Red Cell Distribution Width 13.1 % (11.8-14.3) Platelet Count 241 10^3/uL (140-450) Mean Platelet Volume 8.1 fL (6.9-10.8) Neutrophils (%) (Auto) 55.8 % (37.0-80.0) Lymphocytes (%) (Auto) 34.2 % (10.0-50.0) Monocytes (%) (Auto) 8.2 % (0.0-12.0) Eosinophils (%) (Auto) 1.0 % (0.0-7.0) Basophils (%) (Auto) 0.8 % (0.0-2.0) Neutrophils # (Auto) 2.7 10 ^3/uL (1.6-8.6) Lymphocytes # (Auto) 1.6 10 ^3/uL (0.4-5.4) Monocytes # (Auto) 0.4 10 ^3/uL (0-1.3) Eosinophils # (Auto) 0 10 ^3/uL (0-0.8) Basophils # (Auto) 0 10 ^3/uL (0-0.2) Nucleated Red Blood Cells 0.1 % Sodium Level 146 mmol/L (136-145) Potassium Level 3.5 mmol/L (3.5-5.1) Chloride Level 114 mmol/L (98-107) Carbon Dioxide Level 21 mmol/L (20-31) Anion Gap 11 (5-15) Blood Urea Nitrogen 11 mg/dL (9-23) Creatinine 0.73 mg/dL (0.550-1.02) Glomerular Filtration Rate Calc 95 mL/min (>90) BUN/Creatinine Ratio 15.1 (10.0-20.0) Serum Glucose 79 mg/dL (74-106) Calcium Level 10.7 mg/dL (8.7-10.4) Troponin I High Sensitivity 4 ng/L (</=34) Other Laboratory Tests 08/09/24 13:17 Brief Hx & Hospital Course: 58F BIBA w/ prior Hx of Sz and CVA w/ right sided deficits which may be associated to the c/c of Sz. EMS report that the pt is A/Ox0 and that the cattle care worker on scene stated that the pt did not take her medications today but the pt stated that she did. regulatory assistant also notes that the Pt has been getting daily Sz since March of 2024. Pt6 is taking Keppra for the Sz medications. Due from pt being altered we are unable to get actual answers from the pt. In the ER patient noted to have couple of seizures. She was postictal. Therefore she has been admitted to the hospital for further evaluation and management. She is admitted and evaluated by neurologist for seizures. Her Keppra has been increased to 1500 mg p.o. b.i.d.. Patient while in the hospital received IV Keppra. Patient had a x-rays to evaluate her FACULTY NEUROPSYCHOLOGIST shunt placement which appears to be in appropriate place. While in the hospital patient's seizures have minimized. Patient is back to baseline normal status and ambulating. Therefore discussions done with the patient as well as her caregivers/daughters were at bedside on multiple occasions regarding her hospital course, her seizure medication dosage adjustment and close outpatient follow up with Neurosurgery and neurologist. Otherwise given the patient is back to baseline she has been discharged home. Patient's family as well as patient verbalized understanding of her adjustment on her medications, discharge diagnosis, treatment she received while in the hospital, discharge instructions and agree with follow-up plan of care. Consults/Reason for consult CONSULTATION REPORT . ................................................................................ ............................................................................... Neuro Consultation Date of Consultation Date: 08/10/24 History of Present Illness History of Present Illness: Natalee Cid is a 58 year old female who presents with seizures. Information obtained by caregiver. She was unaware she saw Neurology in 06/2024. Caregiver notes that there has been a change in caregivers. She now has a 24/7 caregiver and they are trying to get POA currently to help management her medical issues. They are not sure of her medications and if she is taking it consistently. Per med rec, she was taking Keppra 500mg BID but outpt notes sent 1000mg BID Patient last seen by Dr. Haritha Franco on 06/14/2024 who felt her seizures may be due to shunt malfunction. She has history of FACULTY NEUROPSYCHOLOGIST shunt placement after aneurysm rupture 12 years ago. Assessment/Plan 1. Status epilepticus - She has history of FACULTY NEUROPSYCHOLOGIST shunt placement after aneurysm rupture 12 years ago. Pt is uspposed to be on Keppra 1000mg BID. 08/2024 CT head wo contrast - no acute process, no change compared to 06/2024. 08/10/24 Shunt series (Xray skull, chest, abdomen) show FACULTY NEUROPSYCHOLOGIST shunt is intact. Patient had outpt neurosurgery appt in 07/2024 but apparently was unaware/noncompliant. Her seizures do not seem to be due to FACULTY NEUROPSYCHOLOGIST shunt malfunction given no hydrocephalus, normal shunt series. Likely due to medical noncompliance - Increase Keppra 1500mg BID - Encouraged caregiver to manage daily medications - Outpt neurosurgery eval Will f/u as outpt Plan discussed with: Patient, Other (caregiver) ALESSANDRA BLAND MD Aug 10, 2024 09:38 Condition at Discharge: Stable Final Diagnosis/Problems List Breakthrough seizures, seizure disorder with a history of FACULTY NEUROPSYCHOLOGIST shunt placement Discharge Disposition: Home Discharge Instruct/Medications Diet: Consistent carbohydrate, Cardiac 2g Na,low cholest Activity: No Restrictions, As Tolerated Follow Up/Referral: Dr. Alessandra Bland neurologist in two weeks. Have referral to Neurosurgery for FACULTY NEUROPSYCHOLOGIST shunt evaluation in 2-3 weeks. Medications: Take your at home Keppra total of 1500 mg ( 3 tabs x 500mg) twice a day. And continue her other seizure medication and home medications as you were taking. Continued Medications: Hydrocodone-Acetaminophen (Hydrocodone Bitartrate/AC 5-325 mg) 1 Tab Tab 1 TAB PO DAILY for pain, TAB Levetiracetam (Keppra) 1,000 Mg Tab 1 TAB PO BID, #60 TAB 5 Refills Lorazepam (Ativan Tablet) 0.5 Mg Tb 1 TAB PO BID for anxiety/depression, #60 TAB Metoprolol Tartrate (Lopressor) 25 Mg Tb 1 TAB PO BID Patients Own Medication (Patients Own Medication) . 15 MG PO DAILY PTS OWN MED-OBTAIN FROM PT AND SEND TO RX DRUG: Oxybutynin ER FREQ: Daily RX# EXP: DATE DISP: TECH: RPH: Venlafaxine Hcl (Venlafaxine Hcl Er) 225 Mg Tab 1 TAB PO Zonisamide (Zonisamide) 100 Mg Cap 1 CAP PO DAILY Discharge Statement: "Patient was advised to return to the ER or call 911 if any headaches, dizziness, shortness of breath, chest pain, abdominal pain, bleeding, fevers, or worsening of medical condition. Patient was counseled about treatment plan, medications, possible side effects, patientverbalized understanding. All questions were answered to the best of my ability. This discharge took greater then 30 minutes in planning, reviewing documentation, counseling the patient, and discussing with other team members." ASSESSMENT ASSESSMENT Assessment Breakthrough seizures, seizure disorder with a history of FACULTY NEUROPSYCHOLOGIST shunt placement DULCE RAE MD Aug 11, 2024 13:48
[2024-08-11 16:59] VITALS: BP 123/79; PULSE 70; RESP 18; TEMP 98.1; O2SAT 97
[2024-08-11] MEDS: levETIRAcetam 500 MG TAB PO SCH (18:00)
== END 2024-08-11 19:50 | disposition home health service (06) | DRG 101 ==
LOC: EDBD 11:27 → ER 11:27 → EDUNIT# 11:27 → OVERFLOW 18:18 → TELE-WESTW 23:40
PROVIDERS: ADMIT Hospitalist; ATTEND Hospitalist
DX: G40.901 Epilepsy, unspecified, not intractable, with status epilepticus (principal); Z88.1 Allergy status to other antibiotic agents; Z79.899 Other long term (current) drug therapy; Z86.73 Personal history of transient ischemic attack (TIA), and cerebral infarction without residual deficits; Z91.199 Patient's noncompliance with other medical treatment and regimen due to unspecified reason
CPT/HCPCS: 36415; 70260; 70450; 71045; 74021; 80048; 80307; 81001; 82962; 84484; 85025; 87804; 93005; 96365; 96375; 97163; G0378

== ENCOUNTER 2025-03-01 17:17 | Inpatient (IN) | payer BC, OTHER ==
[~2025-03-01] VITALS: Ht 167.6 cm; Wt 62.1 kg
[~2025-03-01 17:17] MED LIST changes: +HYDR-4902 PO; +LEVE100012 PO; -LEVE100020 PO; +LORA-1121 PO; +POM PO
--- NOTE | 2025-03-01 17:34 | ED.PDOC ---
HPI Comments 59 y/o F, with PMHx of CVA and seizures is BIBA for CC of palpitations. 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 Per EMS, upon arrival to scene patient was found to be A&Ox1 to self only and in SVT. En route to the ED, patient was given a 300NS bolus and 6mg of Adenosine. Upon arrival to the ED, patient is A&Ox4 and all VSS are WNL. Patient states, she has experienced similar symptoms x1 month prior. Patient denies chest pain, nausea, vomiting, or headache. No other symptoms or modifying factors are present at this time. Time Seen by MD: 17:25 Reviewed Notes: Nurses Notes, Bag Presser Notes, Medications, Allergies Allergies: Coded Allergies: Sulfa Antibiotics (Verified Allergy, Unknown, 07/17/24) Home Meds Reported Medications Levetiracetam (Keppra) 1,000 Mg Tab, 1 TAB PO BID, #60 TAB 5 Refills 08/10/24 Patients Own Medication (PATIENTS OWN MEDICATION) ., 15 MG PO DAILY PTS OWN MED-OBTAIN FROM PT AND SEND TO RX DRUG: Oxybutynin ER FREQ: Daily RX# EXP: DATE DISP: TECH: RPH: 08/10/24 Hydrocodone-Acetaminophen (Hydrocodone Bitartrate/AC 5-325 mg) 1 Tab Tab, 1 TAB PO DAILY for pain, TAB 08/10/24 Lorazepam (ATIVAN TABLET) 0.5 Mg Tb, 1 TAB PO BID for anxiety/depression, #60 TAB 08/10/24 Venlafaxine Hcl (Venlafaxine Hcl Er) 225 Mg Tab, 1 TAB PO 07/17/24 Metoprolol Tartrate (Lopressor) 25 Mg Tb, 1 TAB PO BID 07/17/24 Zonisamide (Zonisamide) 100 Mg Cap, 1 CAP PO DAILY 07/17/24 Information Source: Patient, Emergency Med Personnel Mode of Arrival: EMS Severity: Moderate Timing: Hours Duration: Since onset Prehospital treatment: IVF, Other (adenosine 6mg) Location: Substernal Quality: Tightness Onset: At Rest Cardiac Risk Factors: None PE Risk Factors: None History of: Similar pain in past Modifying Factors: Nothing Associated Signs and Symptoms: None Past Medical History PAST MEDICAL HISTORY: CVA, Seizures Surgical History: Denies all surgeries CHIEF PROJECTIONIST History: No Pertinent CHIEF PROJECTIONIST History Family History Family History: Reviewed,noncontributory to illness, Unknown Social History Smoker: Non-Smoker Alcohol: Denies ETOH Use Drugs: Denies Drug Use Lives In: Home Constitutional: denies: chills, diaphoresis, fatigue, fever, malaise, sweats, weakness, others EENTM: denies: blurred vision, double vision, ear bleeding, ear discharge, ear drainage, ear pain, ear ringing, eye pain, eye redness, hearing loss, mouth pain, mouth swelling, nasal discharge, nose bleeding, nose congestion, nose pain, photophobia, tearing, throat pain, throat swelling, voice changes, others Respiratory: denies: cough, hemoptysis, orthopnea, SOB at rest, shortness of breath, SOB with excertion, stridor, wheezing, others Cardiovascular: reports: palpitations; denies: chest pain, dizzy spells, diaphoresis, Dyspnea on exertion, edema, irregular heart beat, left arm pain, lightheadedness, PND, syncope, others Gastrointestinal: denies: abdomen distended, abdominal pain, blood streaked bowels, constipated, diarrhea, dysphagia, difficulty swallowing, hematemesis, melena, nausea, poor appetite, poor fluid intake, rectal bleeding, rectal pain, vomiting, others Genitourinary: denies: abnormal vagina bleeding, burning, dyspareunia, dysuria, flank pain, frequency, hematuria, incontinence, pain, , vagina discharge, urgency, others Neurological: denies: dizziness, fainting, headache, left sided numbness, left sided weakness, numbness, paresthesia, pre-existing deficit, right sided numbness, right sided weakness, seizure, speech problems, tingling, tremors, weakness, others Musculoskeletal: denies: back pain, gout, joint pain, joint swelling, muscle pain, muscle stiffness, neck pain, others Integumetry: denies: bruises, change in color, change in hair/nails, dryness, laceration, lesions, lumps, rash, wounds, others Allergic/Immunocompromised: denies: Difficulty Healing, Frequent Infections, Hives, Itching, others Hematologic/Lymphatic: denies: anemia, blood clots, easy bleeding, easy bruising, swollen glands, others Endocrine: denies: excessive hunger, excessive sweating, excessive thirst, excessive urination, flushing, intolerance to cold, intolerance to heat, unexplained weight gain, unexplained weight loss, others Psychiatric: denies: anxiety, bipolar disorder, depression, hopeless, panic disorder, schizophrenia, sleepless, suicidal, others All Other Systems: Reviewed and Negative Physical Exam General Appearance: No Apparent Distress, Normal HEENT: Normal ENT Inspection, Pharynx Normal, TMs Normal Neck: Full Range of Motion, Non-Tender, Normal, Normal Inspection Respiratory: Chest Non-Tender, Lungs Clear, No Accessory Muscle Use, No Respiratory Distress, Normal Breath Sounds Cardiovascular: No Edema, No JVD, No Murmur, No Gallop, Normal Peripheral Pulses, Regular Rate/Rhythm, Other (Unremarkable cardiac evaluation.) Breast Exam: Deferred Gastrointestinal: No Organomegaly, Non Tender, No Pulsatile Mass, Normal Bowel Sounds, Soft Genitalia: Deferred Pelvic: Deferred Rectal: Deferred Extremities: No calf tenderness, Normal capillary refill, Normal inspection, Normal range of motion, Non-tender, No pedal edema Neurologic: Alert, No Motor Deficits, Normal Affect, Normal Mood, No Sensory De ficits Cerebellar Function: NOT DONE Reflexes: NOT DONE Skin: Dry, Normal Color, Warm Lymphatic: No Adenopathy Was a procedure done? Was a procedure done?: No CP Differential Dx Differential Diagnosis: A-fib, A-Flutter, Atrial Dysrhythmia, AV Block 1st Degree, [place], Sinus Tachycardia, Ventricular Dysrhythmia, V-Fib, V-Tach Differential Diagnosis: CHF Differential Diagnosis: Angina, Chest Wall Pain, Other (Supraventricular tachycardia) X-Ray, Labs, Meds, VS Vital Signs Date Time Temp Pulse Resp B/P (MAP) Pulse Ox O2 Delivery O2 Flow Rate FiO2 03/01/25 19:30 Room Air* 0 21 03/01/25 19:30 97.2 57 16 95/56 (69) 98 97.2 03/01/25 18:15 65 16 99 Room Air* 0 21 03/01/25 18:12 98.1 67 16 105/59 (74) 99 98.1 03/01/25 17:17 98.3 71 18 115/81 96 98.3 03/01/25 17:17 76 Lab Test 03/01/25 20:25 03/01/25 18:39 03/01/25 17:38 03/01/25 17:25 Range/Units Troponin I High Sensitivity 58 *H 16 5 </=34 ng/L White Blood Count 4.3 L 4.4-10.8 10^3/uL Red Blood Count 4.43 4.0-5.20 10^6/uL Hemoglobin 13.9 12.2-16.2 g/dL Hematocrit 41.6 36.0-46.0 % Mean Corpuscular Volume 93.9 80.0-100.0 fL Mean Corpuscular Hemoglobin 31.4 28.0-32.0 pg Mean Corpuscular Hemoglobin Concent 33.5 32.0-36.0 g/dL Red Cell Distribution Width 12.7 11.8-14.3 % Platelet Count 225 140-450 10^3/uL Mean Platelet Volume 7.7 6.9-10.8 fL Neutrophils (%) (Auto) 43.8 37.0-80.0 % Lymphocytes (%) (Auto) 41.4 10.0-50.0 % Monocytes (%) (Auto) 8.5 0.0-12.0 % Eosinophils (%) (Auto) 5.2 0.0-7.0 % Basophils (%) (Auto) 1.1 0.0-2.0 % Neutrophils # (Auto) 1.9 1.6-8.6 10 ^3/uL Lymphocytes # (Auto) 1.8 0.4-5.4 10 ^3/uL Monocytes # (Auto) 0.4 0-1.3 10 ^3/uL Eosinophils # (Auto) 0.2 0-0.8 10 ^3/uL Basophils # (Auto) 0 0-0.2 10 ^3/uL Nucleated Red Blood Cells 0.0 % Sodium Level 146 H 136-145 mmol/L Potassium Level 3.8 3.5-5.1 mmol/L Chloride Level 116 H 98-107 mmol/L Carbon Dioxide Level 20 20-31 mmol/L Anion Gap 10 5-15 Blood Urea Nitrogen 12 9-23 mg/dL Creatinine 0.78 0.550-1.02 mg/dL Glomerular Filtration Rate Calc 87 >90 mL/min BUN/Creatinine Ratio 15.4 10.0-20.0 Serum Glucose 93 74-106 mg/dL Calcium Level 9.2 8.7-10.4 mg/dL Total Bilirubin 0.4 0.2-1.0 mg/dL Aspartate Amino Transferase (AST) 42 H 13-40 U/L Alanine Aminotransferase (ALT) 43 H 7-40 U/L Alkaline Phosphatase 66 46-116 U/L B-Type Natriuretic Peptide 43.90 0-100 pg/mL Total Protein 6.4 5.7-8.2 g/dL Albumin 4.0 3.2-4.8 g/dL Lipase 29 12-53 U/L Urine Color Colorless Yellow Urine Clarity Clear Clear Urine pH 7.5 5.0-9.0 Urine Specific [place] 1.006 1.001-1.035 Urine Protein Negative Negative Urine Ketones Negative Negative Urine Blood Negative Negative /uL Urine Nitrite Negative Negative Urine Bilirubin Negative Negative Urine Urobilinogen Normal Negative mg/dL Urine Leukocyte Esterase Negative Negative /uL Urine RBC <1 0 - 4 /hpf Urine Microscopic WBC 1 0-5 /HPF Urine Squamous Epithelial Cells Few <5 /hpf Urine Bacteria Few H None Seen /hpf Urine Mucus Few None Seen Urine Glucose Normal Normal mg/dL X-Ray, Labs, Meds, VS Comment All studies performed the ED were evaluated by me personally. Serum studies were unremarkable for any systemic process, but cardiac markers were rising. EKG revealed a sinus rhythm with a rate of 76. Borderline right axis deviation and borderline low voltage in extremity leads was noted. SC interval of 145 and QT interval of 396. Due to the converted SVT event and continued spiking troponins, patient will be admitted for cardiac consultation and evaluation tomorrow. Patient is a choice insurance patient and therefore, discussed the patient presentation as well as laboratory and studies performed in the ED with provider Jagjit. He agreed to accept the patient is a an admission. Time of 1ST Reevaluation: 21:55 Reevaluation 1ST: Improved Consultation: PCP, Cardiology Patient Education/Counseling: Diagnosis, Treatment Family Education/Counseling: Diagnosis, Treatment, No Family Present SEPSIS Sepsis Screen Recent Procedure: No On Antibiotic Therapy: No Respiratory Rate >20: No Heart Rate >90: No Temp<36 C (96.8 F) or >38.3 C: No SBP <90 or MAP <65 mmHG: No New Acute Mental Status Change: No Is the patient on CPAP, BIPAP,: No Physician Orders Electrocardigram (03/01/25 17:25) Continuous Ekg Monitoring 08,12,16,20,00,04 (03/01/25 17:25) Heplock Iv (03/01/25 ) Admit (03/01/25 22:32) Code Status (03/01/25:) Vital Signs .PER UNIT PROTOCOL (03/01/25 22:32) Review Orders With Adm. (03/01/25 22:32) Encourage Activity As Tolerate (03/01/25 22:32) Consistent Carb(Ccho)Diabetes (03/02/25 Breakfast) Oxygen By Face Mask (03/01/25:32) Docusate Sodium Capsule (Colace Capsule) (03/01/25 22:45) Acetaminophen Tablet (Tylenol Tablet) (03/01/25 22:45) Notify Md Of Changes From Base (03/01/25:) Advance Directive (03/01/25:32) Echo 2d Mode Cardiac Dop (03/01/25:32) Basic Metabolic Panel (03/02/25 05:00) Basic Metabolic Panel (03/03/25 05:00) Basic Metabolic Panel (03/04/25 05:00) Basic Metabolic Panel (03/05/25 05:00) Basic Metabolic Panel (03/06/25 05:00) Complete Blood Count (03/02/25 05:00) Complete Blood Count (03/03/25 05:00) Complete Blood Count (03/04/25 05:00) Complete Blood Count (03/05/25 05:00) Complete Blood Count (03/06/25 05:00) Patient Condition (03/01/25:32) Allergies (03/01/25:32) Hydrocodone-Acet 5/325mg Tab ([place] (03/01/25 22:45) Ondansetron Hcl (Zofran) (03/01/25 22:45) Enoxaparin Sodium (Lovenox) (03/02/25 10:00) Nitroglycerin Sublingual (Ntrostat Subli (03/01/25 22:45) Morphine Sulfate Injection (03/01/25 22:45) Stat Ekg For Chest Pain (03/01/25 22:32) Notify Md Of Changes From Base (03/01/25 22:32) Industrial Electrical Engineer For 24 Hours (03/01/25 22:32) Emergency Dysrhythmia Protocol (03/01/25 22:32) Rhythm Strips Once Every Shift (03/01/25 22:32) Oxygen By Nasal Cannula (03/01/25 22:32) * Cardiology Consult (03/01/25 22:32) Troponin-I Hs (03/02/25 04:00) Troponin-I Hs (03/02/25 10:00) Troponin-I Hs (03/02/25 16:00) Seizure Precautions In Place (03/01/25 22:32) Levetiracetam Tablet (Keppra Tablet) (03/02/25 10:00) Lorazepam 2mg/Ml Inj (Ativan Inj) (03/01/25 22:45) (Nf) Zonisamide (03/02/25 10:00) Pt Request For Service (03/01/25 22:49) * Administrative Job Titles Consult (03/01/25 ) Vital Signs Date Time Temp Pulse Resp B/P (MAP) Pulse Ox O2 Delivery O2 Flow Rate FiO2 03/01/25 19:30 Room Air* 0 21 03/01/25 19:30 97.2 57 16 95/56 (69) 98 97.2 03/01/25 18:15 65 16 99 Room Air* 0 21 03/01/25 18:12 98.1 67 16 105/59 (74) 99 98.1 03/01/25 17:17 98.3 71 18 115/81 96 98.3 03/01/25 17:17 76 Laboratory Tests Test 03/01/25 17:38 White Blood Count 4.3 10^3/uL (4.4-10.8) L Departure 1 Departure Time of Disposition: 21:56 Impression: Primary Impression: SVT (supraventricular tachycardia) Additional Impression: Acute coronary syndrome Disposition: 09 ADMITTED INPATIENT Condition: Stable Discharged With: Self Critical Care Note Critical Care Time?: No Stability Stability form required: No Heart Score Heart Score: Heart Score Response (Comments) Value History Slightly Suspicious 0 EKG Repolarization Disturb 1 Age 45-64 1 Risk Factors 1 or 2 risk factors 1 Troponin 1-2 x's Normal limit 1 Total 4 I personally scribed for BENI ANDERSON PAC ([email or web address]) on 03/01/25 at 17:34. Electronically submitted by Hellen Moore ([email or web address]). BENI ANDERSON PAC Mar 01, 2025 17:34
[2025-03-01 17:55] LABS: Hematocrit 41.6 % (36.0-46.0); Hemoglobin 13.9 g/dL (12.2-16.2); Mean Corpuscular Hemoglobin 31.4 pg (28.0-32.0); Mean Corpuscular Volume 93.9 fL (80.0-100.0); Nucleated Red Blood Cells % 0.0 %
[2025-03-01 18:11] LABS: Albumin 4.0 g/dL (3.2-4.8); Alkaline Phosphatase 66 U/L (46-116); Anion Gap 10 (5-15); BUN/Creatinine Ratio 15.4 (10.0-20.0); Bilirubin, Total 0.4 mg/dL (0.2-1.0); Blood Urea Nitrogen 12 mg/dL (9-23); Calcium 9.2 mg/dL (8.7-10.4); Glucose 93 mg/dL (74-106); Lipase 29 U/L (12-53); Potassium 3.8 mmol/L (3.5-5.1); Total Protein 6.4 g/dL (5.7-8.2)
[2025-03-01 18:13] LABS: Alanine Aminotransferase 43 U/L (7-40); Carbon Dioxide 20 mmol/L (20-31); Chloride 116 mmol/L (98-107); Sodium 146 mmol/L (136-145)
[2025-03-01 18:15] VITALS: PULSE 65; RESP 16; O2SAT 99
[2025-03-01 19:10] LABS: Urine Protein, UAD Negative (Negative)
[2025-03-01] MEDS ORDERED: ONDANSETRON HCL 4 MG/2 ML VIAL IV PRN (22:45)
[2025-03-01] MEDS ORDERED: NITROGLYCERIN 0.4 MG SL TAB SL PRN (22:45)
[2025-03-01] MEDS ORDERED: LORazepam 2MG/ML-1ML VIAL IV PRN (22:45)
[2025-03-01] MEDS ORDERED: DOCUSATE SOD 100 MG CAP PO PRN (22:45)
[2025-03-01] MEDS ORDERED: MORPHINE SULFATE INJ 2 MG/ml SYRG IV PRN (22:45)
[2025-03-01] MEDS ORDERED: HYDROcodone-ACET 5/325MG TAB PO PRN (22:45)
[2025-03-02] VITALS (8 sets, daily range): BP systolic 107–139; BP diastolic 56–70; PULSE 41–47; RESP 12–18; TEMP 97.5–98.2; O2SAT 99–100
[2025-03-02] MEDS ORDERED: LORazepam 0.5 MG TAB PO PRN
[2025-03-02] MEDS: D5W/SOD CHL 0.45% 1,000 ML IV ONE (00:58)
[2025-03-02] MEDS: ACETAMINOPHEN 325 MG TAB PO PRN (01:18)
--- NOTE | 2025-03-02 01:23 | DVHHP2 ---
ADAM PEREZ SNOWBOARD INSTRUCTOR 03/02/25 0123: History of Present Illness Reason for Visit: palpitations History of Present Illness Information in this HPI is limited due to the patient being a poor historian. 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 Patient reports she called EMS because she was experiencing palpitations earlier in the day. Patient states that it has happened multiple times. EMS reported to the emergency department provider that patient was alert and oriented to herself when they arrived And found to be in SVT. EN route to the emergency department she was treated with 300 mL NS along with adenosine 6 mg . During the emergency department evaluation CBC is unremarkable. CMP: Na 146, K3.8, BUN 12, creatinine 0.78, troponins 10/20/57 with upward trend. This time patient's heart rate now bradycardia 43. Patient endorses she has been compliant with her seizure medications in the scheduled to follow up at [facility] in the next few days for re-evaluation of her shunt. At this time patient denies fevers, chills, dizziness, shortness of breath, chest pain, nausea, vomiting. 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 Psych: Anxiety, Depression Smoke: No ALCOHOL: none Drugs: None Lives: Alone Review of Systems Constitutional: No: Fever, Chills, Sweats, Weakness, Malaise, Other Eyes: No: Pain, Vision change, Conjunctivae inflammation, Eyelid inflammation, Other, Redness ENT: No: Ear pain, Ear discharge, Nose pain, Nose discharge, Nose congestion, Mouth pain, Mouth swelling, Throat pain, Throat swelling, Other Respiratory: No: Cough, Dry, Shortness of breath, SOB with excertion, Wheezing, Hemoptysis, Pleuritic Pain, Sputum, Wheezing, Other Cardiovascular: Palpitations, Lt Headedness; No: Chest Pain, Orthopnea, Paroxysmal Noc. Dyspnea, Edema, Other Gastrointestinal: No: Nausea, Vomiting, Abdominal Pain, Diarrhea, Constipation, Melena, Hematochezia, Other Genitourinary: No Dysuria, No Frequency, No Incontinence, No Hematuria, No Retention, No Other Musculoskeletal: No: other, neck pain, shoulder pain, arm pain, back pain, hand pain, leg pain, foot pain Skin: No: Rash, Lesions, Jaundice, Bruising, Other Neurological: No: Weakness, Numbness, Incoordination, Change in speech, Confusion, Seizures, Other Allergies: Coded Allergies: Sulfa Antibiotics (Verified Allergy, Unknown, 07/17/24) Medications Current Medications Medications Dose Ordered Sig/Rosa Isela Route Start Time Stop Time Status Last Admin Dose Admin Docusate Sodium 100 mg BIDPRN PRN PO 03/01/25 22:45 Acetaminophen 650 mg Q6HP PRN PO 03/01/25 22:45 Acetaminophen/ Hydrocodone Bitart 1 tab Q4HP PRN PO 03/01/25 22:45 Ondansetron HCl 4 mg Q4HP PRN IV 03/01/25 22:45 Enoxaparin Sodium 40 mg DAILY SC 03/02/25 10:00 Nitroglycerin 0.4 mg Q5MINP PRN SL 03/01/25 22:45 Morphine Sulfate 2 mg Q30M PRN IV 03/01/25 22:45 Levetiracetam 750 mg BID PO 03/02/25 10:00 Lorazepam 0.5 mg Q2HPRN PRN IV 03/01/25 22:45 Patient Own Medication 100 mg DAILY PO 03/02/25 10:00 UNV Lorazepam 0.5 mg Q12HP PRN PO 03/02/25 00:00 Exam Vital Signs Vital Signs Date Time Temp Pulse Resp B/P (MAP) Pulse Ox O2 Delivery O2 Flow Rate FiO2 03/01/25 22:00 45 16 98/46 (63) 98 03/01/25 19:30 Room Air* 0 21 03/01/25 19:30 97.2 97.2 General Appearance: Alert, Oriented X3, mild distress HEENT: Atraumatic, PERRLA, EOMI Respiratory: Clear to auscultation, Normal air movement Cardiovascular: Regular rate, Normal S1, Normal S2, Other (Bradycardia) Abdominal: Normal bowel sounds, Soft, No tenderness Extremities: No cyanosis, No edema Skin: No rashes Neuro: Normal speech Psych/Mental Status: Mental status NL, Mood NL Labs/Xrays Labs Test 03/01/25 20:25 03/01/25 17:38 03/01/25 17:25 Range/Units Troponin I High Sensitivity 58 *H </=34 ng/L White Blood Count 4.3 L 4.4-10.8 10^3/uL Red Blood Count 4.43 4.0-5.20 10^6/uL Hemoglobin 13.9 12.2-16.2 g/dL Hematocrit 41.6 36.0-46.0 % Mean Corpuscular Volume 93.9 80.0-100.0 fL Mean Corpuscular Hemoglobin 31.4 28.0-32.0 pg Mean Corpuscular Hemoglobin Concent 33.5 32.0-36.0 g/dL Red Cell Distribution Width 12.7 11.8-14.3 % Platelet Count 225 140-450 10^3/uL Mean Platelet Volume 7.7 6.9-10.8 fL Neutrophils (%) (Auto) 43.8 37.0-80.0 % Lymphocytes (%) (Auto) 41.4 10.0-50.0 % Monocytes (%) (Auto) 8.5 0.0-12.0 % Eosinophils (%) (Auto) 5.2 0.0-7.0 % Basophils (%) (Auto) 1.1 0.0-2.0 % Neutrophils # (Auto) 1.9 1.6-8.6 10 ^3/uL Lymphocytes # (Auto) 1.8 0.4-5.4 10 ^3/uL Monocytes # (Auto) 0.4 0-1.3 10 ^3/uL Eosinophils # (Auto) 0.2 0-0.8 10 ^3/uL Basophils # (Auto) 0 0-0.2 10 ^3/uL Nucleated Red Blood Cells 0.0 % Sodium Level 146 H 136-145 mmol/L Potassium Level 3.8 3.5-5.1 mmol/L Chloride Level 116 H 98-107 mmol/L Carbon Dioxide Level 20 20-31 mmol/L Anion Gap 10 5-15 Blood Urea Nitrogen 12 9-23 mg/dL Creatinine 0.78 0.550-1.02 mg/dL Glomerular Filtration Rate Calc 87 >90 mL/min BUN/Creatinine Ratio 15.4 10.0-20.0 Serum Glucose 93 74-106 mg/dL Calcium Level 9.2 8.7-10.4 mg/dL Total Bilirubin 0.4 0.2-1.0 mg/dL Aspartate Amino Transferase (AST) 42 H 13-40 U/L Alanine Aminotransferase (ALT) 43 H 7-40 U/L Alkaline Phosphatase 66 46-116 U/L B-Type Natriuretic Peptide 43.90 0-100 pg/mL Total Protein 6.4 5.7-8.2 g/dL Albumin 4.0 3.2-4.8 g/dL Lipase 29 12-53 U/L Urine Color Colorless Yellow Urine Clarity Clear Clear Urine pH 7.5 5.0-9.0 Urine Specific [place] 1.006 1.001-1.035 Urine Protein Negative Negative Urine Ketones Negative Negative Urine Blood Negative Negative /uL Urine Nitrite Negative Negative Urine Bilirubin Negative Negative Urine Urobilinogen Normal Negative mg/dL Urine Leukocyte Esterase Negative Negative /uL Urine RBC <1 0 - 4 /hpf Urine Microscopic WBC 1 0-5 /HPF Urine Squamous Epithelial Cells Few <5 /hpf Urine Bacteria Few H None Seen /hpf Urine Mucus Few None Seen Urine Glucose Normal Normal mg/dL SEPSIS Sepsis Screen Date sepsis recognized/suspect: Mar 01, 2025 Time Sepsis recognized/suspect: 1929 Recent Procedure: No On Antibiotic Therapy: No Respiratory Rate >20: No Heart Rate >90: No Temp<36 C (96.8 F) or >38.3 C: No SBP <90 or MAP <65 mmHG: No New Acute Mental Status Change: No Is the patient on CPAP, BIPAP,: No Physician Orders Electrocardigram (03/01/25 17:25) Continuous Ekg Monitoring 08,12,16,20,00,04 (03/01/25 17:25) Heplock Iv (03/01/25 ) Admit (03/01/25 22:32) Code Status (03/01/25 22:32) Vital Signs .PER UNIT PROTOCOL (03/01/25 22:32) Review Orders With Adm. (03/01/25 22:32) Encourage Activity As Tolerate (03/01/25 22:32) Consistent Carb(Ccho)Diabetes (03/02/25 Breakfast) Oxygen By Face Mask (03/01/25 22:32) Docusate Sodium Capsule (Colace Capsule) (03/01/25 22:45) Acetaminophen Tablet (Tylenol Tablet) (03/01/25 22:45) Notify Md Of Changes From Base (03/01/25 22:32) Advance Directive (03/01/25 22:32) Echo 2d Mode Cardiac Dop (03/01/25 22:32) Basic Metabolic Panel (03/02/25 05:00) Basic Metabolic Panel (03/03/25 05:00) Basic Metabolic Panel (03/04/25 05:00) Basic Metabolic Panel (03/05/25 05:00) Basic Metabolic Panel (03/06/25 05:00) Complete Blood Count (03/02/25 05:00) Complete Blood Count (03/03/25 05:00) Complete Blood Count (03/04/25 05:00) Complete Blood Count (03/05/25 05:00) Complete Blood Count (03/06/25 05:00) Patient Condition (03/01/25 22:32) Allergies (03/01/25 22:32) Hydrocodone-Acet 5/325mg Tab ([place] (03/01/25 22:45) Ondansetron Hcl (Zofran) (03/01/25 22:45) Enoxaparin Sodium (Lovenox) (03/02/25 10:00) Nitroglycerin Sublingual (Ntrostat Subli (03/01/25 22:45) Morphine Sulfate Injection (03/01/25 22:45) Stat Ekg For Chest Pain (03/01/25 22:32) Notify Md Of Changes From Base (03/01/25 22:32) Nail Galvanizer For 24 Hours (03/01/25 22:32) Emergency Dysrhythmia Protocol (03/01/25 22:32) Rhythm Strips Once Every Shift (03/01/25 22:32) Oxygen By Nasal Cannula (03/01/25 22:32) * Cardiology Consult (03/01/25 22:32) Troponin-I Hs (03/02/25 04:00) Troponin-I Hs (03/02/25 10:00) Troponin-I Hs (03/02/25 16:00) Seizure Precautions In Place (03/01/25 22:32) Levetiracetam Tablet (Keppra Tablet) (03/02/25 10:00) Lorazepam 2mg/Ml Inj (Ativan Inj) (03/01/25 22:45) (Nf) Zonisamide (03/02/25 10:00) Pt Request For Service (03/01/25 22:49) * International Account Representative Consult (03/01/25 ) D5w/Sod Chl 0.45% (D5w 1/2ns) (03/02/25 00:00) Lorazepam Tablet (Ativan Tablet) (03/02/25 00:00) Education - Smoking Cessation (03/02/25 00:50) * Smoking Cessation Consult (03/02/25 00:50) Chest Two Views Routine (03/02/25 01:03) Vital Signs Date Time Temp Pulse Resp B/P (MAP) Pulse Ox O2 Delivery O2 Flow Rate FiO2 03/01/25 22:00 45 16 98/46 (63) 98 03/01/25 19:30 Room Air* 0 21 03/01/25 19:30 97.2 57 16 95/56 (69) 98 97.2 03/01/25 18:15 65 16 99 Room Air* 0 21 03/01/25 18:12 98.1 67 16 105/59 (74) 99 98.1 03/01/25 17:17 98.3 71 18 115/81 96 98.3 03/01/25 17:17 76 Laboratory Tests Test 03/01/25 17:38 White Blood Count 4.3 10^3/uL (4.4-10.8) L Assessment/Plan Assessment/Plan SVT chemical conversion, now bradycardia Elevated troponin Hx Seizures Hx PRESIDENT AND [employer]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 Plan Admit telemetry Cardiology consult. Echocardiogram. ASA, statin. Serial troponin. Seizure precautions, continue home medications. IVF Physical therapy evaluation Social service consult GI ppx protonix / dvt ppx lovenox Plan discussed with: Patient My Orders Orders - ADMA PEREZ NP Procedure Category Date Status Time Admit ADMIT 03/01/25 Transmitted 22:32 Code Status CODE 03/01/25 Transmitted 22:32 Vital Signs NATHALIE 03/01/25 In Process 22:32 Review Orders With NATHALIE 03/01/25 In Process Adm. 22:32 Encourage Activity As NATHALIE 03/01/25 In Process Tolerate 22:32 Consistent DIET 03/02/25 Transmitted Carb(Ccho)Diabetes Breakfast Oxygen By Face Mask RT 03/01/25 Transmitted 22:32 Docusate Sodium PHA 03/01/25 In Process Capsule (Colace 22:45 Acetaminophen Tablet PHA 03/01/25 In Process (Tylenol Tablet) 22:45 Notify Of Changes NATHALIE 03/01/25 In Process From Base 22:32 Advance Directive NATHALIE 03/01/25 In Process 22:32 Echo 2d Mode Cardiac US 03/01/25 Logged DOP 22:32 Basic Metabolic Panel LAB 03/02/25 Logged 05:00 Basic Metabolic Panel LAB 03/03/25 Verified 05:00 Basic Metabolic Panel LAB 03/04/25 Verified 05:00 Basic Metabolic Panel LAB 03/05/25 Verified 05:00 Basic Metabolic Panel LAB 03/06/25 Verified 05:00 Complete Blood Count LAB 03/02/25 Logged 05:00 Complete Blood Count LAB 03/03/25 Verified 05:00 Complete Blood Count LAB 03/04/25 Verified 05:00 Complete Blood Count LAB 03/05/25 Verified 05:00 Complete Blood Count LAB 03/06/25 Verified 05:00 Patient Condition ORDERS 03/01/25 Transmitted 22:32 Allergies NATHALIE 03/01/25 In Process 22:32 Hydrocodone-Acet PHA 03/01/25 In Process 5/325mg Tab ([place] 22:45 Ondansetron Hcl PHA 03/01/25 In Process (Zofran) 22:45 Enoxaparin Sodium PHA 03/02/25 In Process (Lovenox) 10:00 Nitroglycerin PHA 03/01/25 In Process Sublingual (Ntrostat 22:45 Morphine Sulfate PHA 03/01/25 In Process Injection 22:45 Stat Ekg For Chest NATHALIE 03/01/25 In Process Pain 22:32 Notify Of Changes NATHALIE 03/01/25 In Process From Base 22:32 Nail Galvanizer For [facility] 03/01/25 In Process 24 Hours 22:32 Emergency Dysrhythmia NATHALIE 03/01/25 In Process Protocol 22:32 Rhythm Strips Once NATHALIE 03/01/25 In Process Every Shift 22:32 Oxygen By Nasal RT 03/01/25 Transmitted Cannula 22:32 * Cardiology Consult CONS 03/01/25 Transmitted 22:32 Troponin-I Hs LAB 03/02/25 Logged 04:00 Troponin-I Hs LAB 03/02/25 Logged 10:00 Troponin-I Hs LAB 03/02/25 Logged 16:00 Seizure Precautions NATHALIE 03/01/[address] 22:32 Levetiracetam Tablet PHA 03/02/25 In Process (Keppra Tablet) 10:00 Lorazepam 2mg/Ml Inj PHA 03/01/25 In Process (Ativan Inj) 22:45 (Nf) Zonisamide PHA 03/02/25 Pending 10:00 Pt Request For Service PT 03/01/25 Logged 22:49 * International Account Representative CONS 03/01/25 Transmitted Consult D5w/Sod Chl 0.45% PHA 03/02/25 In Process (D5w 1/2ns) 00:00 Lorazepam Tablet PHA 03/02/25 In Process (Ativan Tablet) 00:00 Education - Smoking NATHALIE 03/02/25 In Process Cessation 00:50 * Smoking Cessation CONS 03/02/25 Transmitted Consult 00:50 Chest Two Views XY 03/02/25 Logged Routine 01:03 Date of Service: Mar 02, 2025 Billing Provider: GLENNA PINO MD Common Visit Codes: NOT BILLABLE GLENNA PINO MD 03/02/25 1438: Review of Systems Allergies: Coded Allergies: Sulfa Antibiotics (Verified Allergy, Unknown, 07/17/24) Additional Comments Additional Comments Additional Comments 59-year-old female with a known history of seizure disorder, previous history of CVA with a right-sided deficit, 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 SVT status post chemical cardioversion with a adenosine 2. Elevated troponin suspect demand ischemia secondary to SVT 3. Seizure disorder 4. History of BP shunt 5. History of CVA with right-sided deficit -2D echo, cardiology consultation, continue current management, physical therapy evaluation and treatment, hospital social worker consultation for home health home safety evaluation upon discharge. ADAM PEREZ NP Mar 02, 2025 01:23 GLENNA PINO MD Mar 02, 2025 14:38
[2025-03-02 06:21] LABS: Hematocrit 43.1 % (36.0-46.0); Hemoglobin 14.4 g/dL (12.2-16.2); Mean Corpuscular Hemoglobin 31.7 pg (28.0-32.0); Mean Corpuscular Volume 94.8 fL (80.0-100.0); Nucleated Red Blood Cells % 0.1 %
[2025-03-02 06:25] LABS: Anion Gap 10 (5-15); Calcium 9.5 mg/dL (8.7-10.4); Potassium 4.1 mmol/L (3.5-5.1); Sodium 145 mmol/L (136-145)
[2025-03-02 06:26] LABS: Carbon Dioxide 20 mmol/L (20-31); Chloride 115 mmol/L (98-107)
[2025-03-02 06:30] LABS: Glucose 99 mg/dL (74-106)
[2025-03-02 06:31] LABS: BUN/Creatinine Ratio 16.2 (10.0-20.0); Blood Urea Nitrogen 12 mg/dL (9-23)
--- NOTE | 2025-03-02 08:58 | DVH ---
XY CHEST TWO VIEWS ROUTINE CLINICAL HISTORY: pain COMPARISON: XR CHEST 2 VIEW on DOS: 01/01/25, XY CHEST XRAY 1 VIEW on DOS: 08/10/24, XR CHEST 1 VIEW on DOS: 05/30/24 TECHNIQUE: Frontal and lateral view of the chest was obtained FINDINGS: Lines and Tubes: Partially visualized ventriculoperitoneal shunts. Lungs: No focal consolidation. Hyperinflation of the lungs suggestive of chronic obstructive pulmonar y disease with flattening of the diaphragms. Pleura: No effusion. No pneumothorax. Cardiomediastinal contours: Unremarkable Bones: No acute osseous abnormality. IMPRESSION: No acute cardiopulmonary disease. Hyperinflation of the lungs suggestive of chronic obstructive pulmo nary disease with flattening of the diaphragms.
[2025-03-02] MEDS: levETIRAcetam 500 MG TAB PO SCH (09:13)
[2025-03-02] MEDS: ENOXAPARIN SOD 40 MG/0.4 ML SYRINGE SC SCH (09:32)
--- NOTE | 2025-03-02 19:00 | DVHSR ---
APPROVED REPORT EXAM: Two-dimensional and M-mode echocardiogram with Doppler and color Doppler. Blood Pressure: 137/70 mmHg INDICATION SVT RISK FACTORS Height: 5'6", Weight: 137 DIMENSIONS LVDd4.2 (3.8-5.7cm)LA (2D)4.0 (1.9-4.0cm)Aortic Root2.8 (2.0-3.7cm) LVDs2.9 (2.5-4.0cm)LA (MM) (1.9-4.0cm)Aortic Cusp Exc2.0 (1.5-2.0cm) EF (%) 60.0 (55-70%)Rt. Atrium3.0 (1.9-4.0cm)Asc. Aorta2.6 cm IVSd0.8 (0.7-1.1cm)RV (D)3.1 (1.8-2.4cm) PWd1.1 (0.7-1.1cm) Mitral Valve MitralMitral Stenosis E wave0.60m/sMV Mean GR.mmHg A wave0.56m/sMV Peak GR.mmHg E/A ratio1.12D MVAcm2 DECEL [id number] 1/2 Timems Aortic Valve Aortic ValveAortic Stenosis V10.82m/Dao Mean GR.3mmHg V21.13m/Dao Peak GR.5mmHg LVOT Diameter2.3 (1.8-2.4cm)Doppler AVA3.01cm2 Pulmonic Valve V20.69m/s Tricuspid Valve TR Velocity1.96m/s [id number] Conclusion LV EF IS 65% NORMAL VALVES NORMAL RV FUNCTION NO EFFUSION
--- NOTE | 2025-03-02 20:39 | DVHINCON2 ---
Date Seen: Mar 02, 2025 Referring Physician OSWALDO Danielson Reason for Consultation SVT and elevated troponin History of Present Illness This is a 59-year-old female who presented to the emergency room via EMS with a chief complaint of palpitations. Per patient, she developed a sudden onset of persistent palpitations which prompted her to call 911. Upon EMS arrival she was found to be in a supraventricular tachycardia rhythm for which she was medicated with adenosine 6 mg IV x1 and IVF x300 mL bolus with successful chemical cardioversion. Upon arrival to the emergency room she underwent a 12 lead electrocardiogram revealing a normal sinus rhythm at 76 bpm. Cardiac mo nitor reviewed revealing a sinus bradycardia rhythm as low as 38 bpm evidence of atrioventricular blocks or sinus pauses. Troponin levels peaked at 58 ng/L. The patient denies any chest pain, palpitations, SOB, diaphoresis, dizziness, visual disturbance, or syncopal events. Significant medical history includes supraventricular tachycardia event on December/2024, seizure activity, and brain aneurysm status post AV shunt (2007) with residual right-sided weakness. Past Medical History Past medical history reviewed. No other significant than mentioned above. Past Surgical History Brain aneurysm with AV shunt, 2008 Hysterectomy Family History: Cardiovascular disease G8 FATHER Family History Family history reviewed. Social History Denies the use of illicit drugs, alcohol, or tobacco use. Allergies: Coded Allergies: Sulfa Antibiotics (Verified Allergy, Unknown, 07/17/24) Home Meds Reported Medications Levetiracetam (Keppra) 1,000 Mg Tab, 1 TAB PO BID, #60 TAB 5 Refills 08/10/24 Patients Own Medication (PATIENTS OWN MEDICATION) ., 15 MG PO DAILY PTS OWN MED-OBTAIN FROM PT AND SEND TO RX DRUG: Oxybutynin ER FREQ: Daily RX# EXP: DATE DISP: TECH: [facility]: 08/10/24 Hydrocodone-Acetaminophen (Hydrocodone Bitartrate/AC 5-325 mg) 1 Tab Tab, 1 TAB PO DAILY for pain, TAB 08/10/24 Lorazepam (ATIVAN TABLET) 0.5 Mg Tb, 1 TAB PO BID for anxiety/depression, #60 TAB 08/10/24 Venlafaxine Hcl (Venlafaxine Hcl Er) 225 Mg Tab, 1 TAB PO 07/17/24 Metoprolol Tartrate (Lopressor) 25 Mg Tb, 1 TAB PO BID 07/17/24 Zonisamide (Zonisamide) 100 Mg Cap, 1 CAP PO DAILY 07/17/24 Home Meds Home medications reviewed. Current Medications Current Medications Medications (Trade) Dose Ordered Sig/Rosa Isela Route PRN Reason Start Time Stop Time Status Last Admin Docusate Sodium (Colace Capsule) 100 mg BIDPRN PRN PO FOR CONSTIPATION 03/01/25 22:45 Acetaminophen (Tylenol Tablet) 650 mg Q6HP PRN PO PAIN SCALE 1-3 OR TEMP>100.4 03/01/25 22:45 03/02/25 09:23 Acetaminophen/ Hydrocodone Bitart ([place] 5/325MG Tab) 1 tab Q4HP PRN PO MODERATE PAIN (4-6 PAIN SCALE) 03/01/25 22:45 Ondansetron HCl (Zofran) 4 mg Q4HP PRN IV NAUSEA / VOMITING 03/01/25 22:45 Enoxaparin Sodium (Lovenox) 40 mg DAILY SC 03/02/25 10:00 Nitroglycerin (Ntrostat Sublingual) 0.4 mg Q5MINP PRN SL FOR CHEST PAIN 03/01/25 22:45 Morphine Sulfate 2 mg Q30M PRN IV FOR CHEST PAIN 03/01/25 22:45 Levetiracetam (Keppra Tablet) 750 mg BID PO 03/02/25 10:00 03/02/25 09:13 Lorazepam (Ativan Inj) 0.5 mg Q2HPRN PRN IV seizure 03/01/25 22:45 Patient Own Medication 100 mg DAILY PO 03/02/25 10:00 Lorazepam (Ativan Tablet) 0.5 mg Q12HP PRN PO ANXIETY 03/02/25 00:00 Aspirin 81 mg DAILY PO 03/02/25 10:00 03/02/25 09:14 Review of Systems Constitutional: No symptom reported Ears, Nose, & Throat: No symptom reported Eyes: No symptom reported Neurological: No symptoms reported Pulmonary/Respiratory: No symptom reported Cardiovascular: Palpitations Gastrointestinal: No symptom reported Genitourinary: No symptom reported Musculoskeletal: No symptom reported Skin: No symptom reported Psychiatric: No symptom reported Endocrine: No symptom reported Hemotologic/Lymphatic: No symptom reported Vital Signs Vital Signs Date Time Temp Pulse Resp B/P (MAP) Pulse Ox O2 Delivery O2 Flow Rate FiO2 03/02/25 16:57 98.2 42 14 116/61 (79) 99 98.2 03/02/25 08:00 Room Air* 0 21 Physical Exam General Appearance: Cooperative. Well developed. Thin. In no acute distress Head Exam: Normal inspection Neck Exam: Normal inspection. Non-tender. Normal alignment Pulmonary/Respiratory: Chest non-tender. Clear bilateral breath sounds Cardiovascular/Chest: Regular rate and rhythm. S1, S2. No murmurs. No JVD. Peripheral Pulses: 2+ Radial (R). 2+ Radial (L). 2+ Pedal (R). 2+ Pedal (L) Abdominal Exam: Normal bowel sounds. Ankle Exam: Negative ankle edema Lower extremities: Negative lower extremity edema Neuro/Mental Status: A&O x3. Coherent. Right-sided weakness present Thoughts/Psych: Normal thought pattern. Appropriate mood and affect Appearance: In no acute distress Skin Exam: Normal inspection. Normal color. Warm. Dry Labs/Diagnostic Data Labs Test 03/02/25 16:08 03/02/25 05:45 03/01/25 17:38 03/01/25 17:25 Range/Units Troponin I High Sensitivity 36 *H </=34 ng/L White Blood Count 4.4 4.4-10.8 10^3/uL Red Blood Count 4.54 4.0-5.20 10^6/uL Hemoglobin 14.4 12.2-16.2 g/dL Hematocrit 43.1 36.0-46.0 % Mean Corpuscular Volume 94.8 80.0-100.0 fL Mean Corpuscular Hemoglobin 31.7 28.0-32.0 pg Mean Corpuscular Hemoglobin Concent 33.4 32.0-36.0 g/dL Red Cell Distribution Width 12.7 11.8-14.3 % Platelet Count 98 L 140-450 10^3/uL Mean Platelet Volume 8.2 6.9-10.8 fL Neutrophils (%) (Auto) 41.2 37.0-80.0 % Lymphocytes (%) (Auto) 41.6 10.0-50.0 % Monocytes (%) (Auto) 9.9 0.0-12.0 % Eosinophils (%) (Auto) 6.4 0.0-7.0 % Basophils (%) (Auto) 0.9 0.0-2.0 % Neutrophils # (Auto) 1.8 1.6-8.6 10 ^3/uL Lymphocytes # (Auto) 1.8 0.4-5.4 10 ^3/uL Monocytes # (Auto) 0.4 0-1.3 10 ^3/uL Eosinophils # (Auto) 0.3 0-0.8 10 ^3/uL Basophils # (Auto) 0 0-0.2 10 ^3/uL Nucleated Red Blood Cells 0.1 % Sodium Level 145 136-145 mmol/L Potassium Level 4.1 3.5-5.1 mmol/L Chloride Level 115 H 98-107 mmol/L Carbon Dioxide Level 20 20-31 mmol/L Anion Gap 10 5-15 Blood Urea Nitrogen 12 9-23 mg/dL Creatinine 0.74 0.550-1.02 mg/dL Glomerular Filtration Rate Calc 93 >90 mL/min BUN/Creatinine Ratio 16.2 10.0-20.0 Serum Glucose 99 74-106 mg/dL Calcium Level 9.5 8.7-10.4 mg/dL Total Bilirubin 0.4 0.2-1.0 mg/dL Aspartate Amino Transferase (AST) 42 H 13-40 U/L Alanine Aminotransferase (ALT) 43 H 7-40 U/L Alkaline Phosphatase 66 46-116 U/L B-Type Natriuretic Peptide 43.90 0-100 pg/mL Total Protein 6.4 5.7-8.2 g/dL Albumin 4.0 3.2-4.8 g/dL Lipase 29 12-53 U/L Urine Color Colorless Yellow Urine Clarity Clear Clear Urine pH 7.5 5.0-9.0 Urine Specific [place] 1.006 1.001-1.035 Urine Protein Negative Negative Urine Ketones Negative Negative Urine Blood Negative Negative /uL Urine Nitrite Negative Negative Urine Bilirubin Negative Negative Urine Urobilinogen Normal Negative mg/dL Urine Leukocyte Esterase Negative Negative /uL Urine RBC <1 0 - 4 /hpf Urine Microscopic WBC 1 0-5 /HPF Urine Squamous Epithelial Cells Few <5 /hpf Urine Bacteria Few H None Seen /hpf Urine Mucus Few None Seen Urine Glucose Normal Normal mg/dL Assessment Supraventricular tachycardia with successful chemical cardioversion NSTEMI, likely type 2 secondary to above Sinus bradycardia Seizure activity Brain aneurysm status post AV shunt with residual right-sided weakness Borderline thrombocytopenia Plan/Recommendation (Dr. Robertson) The patient experienced a supraventricular tachycardia event with successful chemical cardioversion on the field (there was no copy of SVT rhythm strip/ECG in chart) and presents with a sinus bradycardia rhythm with home medications including metoprolol tartrate 25 mg BID. Recommendations are to avoid CCBs and BBs given HR as low as 38 bpm, initiate low-dose Flecainide with parameters, consider an outpatient event monitor, replenishment of electrolytes as necessary, TSH and free T4 levels. Monitor ECG changes and notify accordingly. Consider an EP evaluation in the setting of further SVT events. Kindly call if in need of further recommendations. Thank you for allowing us to participate in this patient's care. Please call if you have any questions or concerns. This medical document was created using an electronic medical record system with voice recognition software and computerized dictation system. Although this document has been carefully reviewed, there might still be some phonetic and typographical errors. Occasional wrong-word or ``sound-alike substitutions may have occurred due to the inherent limitations of voice recognition software. These areas are purely typographical due to imperfections of the software programs and do not reflect any compromise in the patient's medical care. Please read the chart carefully and recognize, using context, where these substitutions have occurred. Plan discussed with: Patient, Other NYHA Physical activity limitations: NA Date of Service: Mar 02, 2025 Billing Provider: SAMIA CHANG Cardiology Common Codes: [id number] INP/OBS CARE (High) SAMIA CHANG Mar 02, 2025 20:39
[2025-03-02] MEDS: FLECAINIDE ACETATE 50 MG TAB PO SCH (23:04)
[2025-03-03] VITALS (7 sets, daily range): BP systolic 125–136; BP diastolic 59–84; PULSE 41–98; RESP 15–16; TEMP 36.7; O2SAT 94–100
[2025-03-03 06:31] LABS: Hematocrit 45.9 % (36.0-46.0); Hemoglobin 15.4 g/dL (12.2-16.2); Mean Corpuscular Hemoglobin 31.2 pg (28.0-32.0); Mean Corpuscular Volume 92.8 fL (80.0-100.0); Nucleated Red Blood Cells % 0.1 %
[2025-03-03 06:42] LABS: Anion Gap 9 (5-15); Carbon Dioxide 22 mmol/L (20-31); Potassium 3.9 mmol/L (3.5-5.1); Sodium 142 mmol/L (136-145)
[2025-03-03 06:43] LABS: Calcium 9.8 mg/dL (8.7-10.4)
[2025-03-03 06:48] LABS: BUN/Creatinine Ratio 10.4 (10.0-20.0); Glucose 78 mg/dL (74-106)
[2025-03-03 06:50] LABS: Blood Urea Nitrogen 7 mg/dL (9-23); Chloride 111 mmol/L (98-107)
[2025-03-03] MEDS ORDERED: FLE50T PO (13:52)
[2025-03-03] MEDS ORDERED: ASPI-325 PO (13:52)
--- NOTE | 2025-03-03 13:56 | DVHDS2 ---
Discharge Summary Date of Admission Mar 01, 2025 at 22:32 Date of Discharge: Mar 03, 2025 Labs/Diagnostic Data: Laboratory Results Test 03/03/25 05:19 03/02/25 16:08 03/02/25 05:45 03/01/25 17:38 White Blood Count 5.3 10^3/uL (4.4-10.8) Red Blood Count 4.95 10^6/uL (4.0-5.20) Hemoglobin 15.4 g/dL (12.2-16.2) Hematocrit 45.9 % (36.0-46.0) Mean Corpuscular Volume 92.8 fL (80.0-100.0) Mean Corpuscular Hemoglobin 31.2 pg (28.0-32.0) Mean Corpuscular Hemoglobin Concent 33.6 g/dL (32.0-36.0) Red Cell Distribution Width 12.6 % (11.8-14.3) Platelet Count 200 10^3/uL (140-450) Mean Platelet Volume 8.6 fL (6.9-10.8) Neutrophils (%) (Auto) 51.6 % (37.0-80.0) Lymphocytes (%) (Auto) 32.6 % (10.0-50.0) Monocytes (%) (Auto) 10.4 % (0.0-12.0) Eosinophils (%) (Auto) 4.8 % (0.0-7.0) Basophils (%) (Auto) 0.6 % (0.0-2.0) Neutrophils # (Auto) 2.7 10 ^3/uL (1.6-8.6) Lymphocytes # (Auto) 1.7 10 ^3/uL (0.4-5.4) Monocytes # (Auto) 0.6 10 ^3/uL (0-1.3) Eosinophils # (Auto) 0.3 10 ^3/uL (0-0.8) Basophils # (Auto) 0 10 ^3/uL (0-0.2) Nucleated Red Blood Cells 0.1 % Sodium Level 142 mmol/L (136-145) Potassium Level 3.9 mmol/L (3.5-5.1) Chloride Level 111 mmol/L (98-107) Carbon Dioxide Level 22 mmol/L (20-31) Anion Gap 9 (5-15) Blood Urea Nitrogen 7 mg/dL (9-23) Creatinine 0.67 mg/dL (0.550-1.02) Glomerular Filtration Rate Calc 100 mL/min (>90) BUN/Creatinine Ratio 10.4 (10.0-20.0) Serum Glucose 78 mg/dL (74-106) Calcium Level 9.8 mg/dL (8.7-10.4) Troponin I High Sensitivity 36 ng/L (</=34) Thyroid Stimulating Hormone (TSH) 0.58 uIU/mL (0.55-4.78) Free Thyroxine (T4) Calculated 1.21 ng/dL (0.89-1.76) Total Bilirubin 0.4 mg/dL (0.2-1.0) Aspartate Amino Transferase (AST) 42 U/L (13-40) Alanine Aminotransferase (ALT) 43 U/L (7-40) Alkaline Phosphatase 66 U/L (46-116) B-Type Natriuretic Peptide 43.90 pg/mL (0-100) Total Protein 6.4 g/dL (5.7-8.2) Albumin 4.0 g/dL (3.2-4.8) Lipase 29 U/L (12-53) Test 03/01/25 17:25 Urine Color Colorless (Yellow) Urine Clarity Clear (Clear) Urine pH 7.5 (5.0-9.0) Urine Specific [place] 1.006 (1.001-1.035) Urine Protein Negative (Negative) Urine Ketones Negative (Negative) Urine Blood Negative /uL (Negative) Urine Nitrite Negative (Negative) Urine Bilirubin Negative (Negative) Urine Urobilinogen Normal mg/dL (Negative) Urine Leukocyte Esterase Negative /uL (Negative) Urine RBC <1 /hpf (0 - 4) Urine Microscopic WBC 1 /HPF (0-5) Urine Squamous Epithelial Cells Few /hpf (<5) Urine Bacteria Few /hpf (None Seen) Urine Mucus Few (None Seen) Urine Glucose Normal mg/dL (Normal) Other Laboratory Tests 03/03/25 05:19 Brief Hx & Hospital Course: 59-year-old female with a known history of seizure disorder, previous history of CVA with a right-sided deficit, history of SITE MONITOR shunt presented to the hospital with a chest pain palpitation found to have SVT status post chemical cardioversion with a adenosine 6 mg. Patient is currently in normal sinus rhythm. Patient was bradycardic when she came in after the conversion eventually beta filomena was discontinued. Cardiology was consulted patient's echo showed preserved EF without any valvular abnormality. Cardiology cleared the patient to be discharged on aspirin and flecainide. Patient is being discharged under stable condition. Patient's mildly elevated troponin was suspected secondary to demand ischemia secondary to episode of SVT. Condition at Discharge: Stable Final Diagnosis/Problems List 59-year-old female with a known history of seizure disorder, previous history of CVA with a right-sided deficit, history of SITE MONITOR shunt presented to the hospital with a chest pain palpitation found to have 1. SVT status post chemical cardioversion with a adenosine 2. Elevated troponin suspect demand ischemia secondary to SVT 3. Seizure disorder 4. History of BP shunt 5. History of CVA with right-sided deficit Discharge Disposition: Home SNF Discharge Will this Physician continue t: No Discharge Instruct/Medications Diet: Cardiac 2g Na,low cholest Activity: See Comment Activity comment: No signing legal documents, no playing on machinery, no driving while on narcotics Follow Up/Referral: Follow up with the PCP in one week Follow up with Dr. Usman Chowdhury, motor vehicle salesperson in one week. Medications: Aspirin and flecainide as prescribed. Discontinue metoprolol tartrate. Scheduled Aspirin (Aspirin Low Dose), 81 MG PO DAILY Flecainide Acetate (Tambocor Tablet), 50 MG PO Q12HR Hydrocodone-Acetaminophen (Hydrocodone Bitartrate/AC 5-325 mg), 1 TAB PO DAILY, (Reported) Levetiracetam (Keppra), 1 TAB PO BID, (Reported) Lorazepam (Ativan Tablet), 1 TAB PO BID, (Reported) Metoprolol Tartrate (Lopressor), 1 TAB PO BID, (Reported) Patients Own Medication (Patients Own Medication), 15 MG PO DAILY, (Reported) Zonisamide (Zonisamide), 1 CAP PO DAILY, (Reported) Miscellaneous Medications Venlafaxine Hcl (Venlafaxine Hcl Er), 1 TAB PO, (Reported) Discharge Statement: "Patient was advised to return to the ER or call 911 if any headaches, dizziness, shortness of breath, chest pain, abdominal pain, bleeding, fevers, or worsening of medical condition. Patient was counseled about treatment plan, medications, possible side effects, patientverbalized understanding. All questions were answered to the best of my ability. This discharge took greater then 30 minutes in planning, reviewing documentation, counseling the patient, and discussing with other team members." ASSESSMENT ASSESSMENT Assessment 59-year-old female with a known history of seizure disorder, previous history of CVA with a right-sided deficit, history of SITE MONITOR shunt presented to the hospital with a chest pain palpitation found to have 1. SVT status post chemical cardioversion with a adenosine 2. Elevated troponin suspect demand ischemia secondary to SVT 3. Seizure disorder 4. History of BP shunt 5. History of CVA with right-sided deficit Date of Service: Mar 03, 2025 Billing Provider: GLENNA PINO MD Common Visit Codes: NOT BILLABLE GLENNA PINO MD Mar 03, 2025 13:56
== END 2025-03-03 17:15 | disposition home or self-care (01) | DRG 282 ==
LOC: EDUNIT# 17:17 → EDBD 17:17 → ER 17:20 → TELE-CENTR 22:32 → OVERFLOW 22:32 → TELE-CENTR 23:58
PROVIDERS: ADMIT Nurse Practitioner Family; ATTEND Nurse Practitioner Family
DX: I47.10 Supraventricular tachycardia, unspecified (principal); I21.A1 Myocardial infarction type 2; F41.9 Anxiety disorder, unspecified; F32.A Depression, unspecified; G40.909 Epilepsy, unspecified, not intractable, without status epilepticus; D69.6 Thrombocytopenia, unspecified; Z79.899 Other long term (current) drug therapy; Z88.1 Allergy status to other antibiotic agents; Z86.73 Personal history of transient ischemic attack (TIA), and cerebral infarction without residual deficits; Z82.49 Family history of ischemic heart disease and other diseases of the circulatory system; Z98.2 Presence of cerebrospinal fluid drainage device; Z90.710 Acquired absence of both cervix and uterus
CPT/HCPCS: 36415; 71046; 80048; 80053; 81001; 83690; 83880; 84439; 84443; 84484; 85025; 93306; 96365; 97110; 97116; 97163; 97530; G0378